=== PATIENT | female | born 1985 | race Caucasian/White ===

== ENCOUNTER 2024-03-22 08:28 | Inpatient (IN) | payer OTHER ==
[2024-03-22 08:37] LABS: Glucose,Whole Blood >600 mg/dL (70-110)
[2024-03-22] MEDS: SODIUM CHLORIDE 0.9% 2,000 ML IV STA (09:00)
[2024-03-22] MEDS: KETOROLAC 15 MG/ML 1 ML VIAL IVP STA (09:02)
[2024-03-22] MEDS: LORazepam 2 MG/ML INJ IV STA (09:03)
[2024-03-22] MEDS: methylPREDNISolone SOD SUCCI 125 MG/2 ML VIAL IV STA (09:03)
[2024-03-22] MEDS: FAMOTIDINE 20 MG/2 ML VIAL IV STA (09:04)
[2024-03-22] MEDS: ONDANSETRON 4 MG/2 ML VIAL IVP STA (09:05)
[2024-03-22] MEDS: diphenhydrAMINE 50 MG/ML 1 ML VIAL IVP STA (09:06)
--- NOTE | 2024-03-22 09:08 | ED ---
Abdominal Pain HPI - General Chief Complaint: Abdominal Pain Stated Complaint: Abd pain Time Seen by Provider: 03/22/24 08:40 Source: patient, EMS Mode of arrival: EMS Limitations: no limitations - History of Present Illness Initial Comments: 38-year-old female with past medical history of hypertension, diabetes on insulin who presents emergency department with nausea vomiting and abdominal pain. Patient states that for the past 12 hours she has had intense nausea, vomiting and diarrhea. Also reports to increased urination and thirst. She has not been on any of her diabetic medications except for metformin. States she recently moved here from [place] and all of her medication orders were confusing. States that she is taking lisinopril for her high blood pressure but has not taken it in the past 2 days because of vomiting. She has had positive sick contacts at home with same symptoms and so she thought it was just food poisoning. She denies hematemesis or dark stools. Patient has never been in DKA. She does have a history of alcohol abuse. Drinks 5th of vodka daily. States her last drink was 5 days ago but her mother does not believe this. - Related Data Home Medications Medication Instructions Recorded Confirmed lisinopriL [Zestril] 40 mg PO DAILY 03/22/24 03/23/24 metFORMIN HCL ER [Glucophage XR] 1,000 mg PO DAILY 03/22/24 03/23/24 Lansoprazole [Prevacid 24Hr] 15 mg PO DAILY 03/23/24 03/23/24 Sertraline [Zoloft] 100 mg PO DAILY 03/23/24 03/23/24 Vitamin B-100 Complex 1 tab PO DAILY 03/23/24 03/23/24 hydrOXYzine HCL [Atarax] 10 - 20 mg PO QID PRN 03/23/24 03/23/24 Previous Rx's Medication Instructions Recorded INSULIN ASPART (NovoLOG) [NovoLOG 10 unit SQ ACHS #1 each 03/25/24 (formulary)] Insulin Detemir (Levemir) [Levemir] 25 unit SQ DAILY@0700 #1 each 03/25/24 Insulin Detemir (Levemir) [Levemir] 25 unit SQ HS #1 each 03/25/24 Syringe and Needle,Insulin,1Ml 1 syr SQ DIRECTED #180 each 03/25/24 [Insulin Syringe 29G 1/2" 1ml] Allergies Allergy/AdvReac Type Severity Reaction Status Date / Time Iodinated Contrast Media Allergy Unknown Verified 03/22/24 08:43 Review of Systems ROS Statement: Those systems with pertinent positive or pertinent negative responses have been documented in the HPI. ROS Other: All systems not noted in ROS Statement are negative. Past Medical History Past Medical History: Diabetes Mellitus, Hypertension Additional Past Medical History / Comment(s): Lupus Past Surgical History: No Surgical Hx Reported Past Psychological History: Anxiety Smoking Status: Never smoker Past Alcohol Use History: Occasional Past Drug Use History: None Reported - Past Family History Mother Family Medical History: Diabetes Mellitus Father Family Medical History: Diabetes Mellitus General Exam Limitations: no limitations General appearance: alert, in no apparent distress Head exam: Present: atraumatic, normocephalic, normal inspection Eye exam: Present: normal appearance, PERRL, EOMI. Absent: scleral icterus, conjunctival injection, periorbital swelling ENT exam: Present: normal exam, mucous membranes dry Neck exam: Present: normal inspection. Absent: tenderness, meningismus, lymphadenopathy Respiratory exam: Present: normal lung sounds bilaterally, other (Tachypneic). Absent: respiratory distress, wheezes, rales, rhonchi, stridor Cardiovascular Exam: Present: normal rhythm, tachycardia, normal heart sounds. Absent: systolic murmur, diastolic murmur, rubs, gallop, clicks GI/Abdominal exam: Present: soft, normal bowel sounds. Absent: distended, tenderness, guarding, rebound, rigid Extremities exam: Present: normal inspection, full ROM, normal capillary refill. Absent: tenderness, pedal edema, joint swelling, calf tenderness Back exam: Present: normal inspection Neurological exam: Present: alert, oriented X3, CN II-XII intact Psychiatric exam: Present: normal affect, normal mood Skin exam: Present: warm, dry, intact, normal color. Absent: rash Course Vital Signs 03/22/24 03/22/24 03/22/24 08:33 09:08 09:27 Temperature 97.6 F Pulse Rate 140 H 140 H 141 H Respiratory 26 H 20 20 Rate Blood Pressure 187/148 178/121 133/105 O2 Sat by Pulse 97 99 96 Oximetry 03/22/24 03/22/24 03/22/24 09:59 10:05 10:35 Temperature 98.8 F Pulse Rate 140 H 140 H 141 H Respiratory 22 16 16 Rate Blood Pressure 157/106 154/100 170/115 O2 Sat by Pulse 99 100 97 Oximetry 03/22/24 03/22/24 03/22/24 11:12 11:34 12:05 Temperature 97.9 F Pulse Rate 142 H 141 H 140 H Respiratory 20 22 20 Rate Blood Pressure 163/106 142/99 129/99 O2 Sat by Pulse 98 96 96 Oximetry 03/22/24 03/22/24 03/22/24 13:03 14:00 15:04 Temperature 98.0 F 98.2 F Pulse Rate 147 H 142 H 146 H Respiratory 22 22 20 Rate Blood Pressure 149/111 126/85 147/98 O2 Sat by Pulse 93 L 95 95 Oximetry 03/22/24 03/22/24 03/22/24 16:15 17:05 18:13 Temperature 98.3 F 98.8 F Pulse Rate 141 H 138 H 140 H Respiratory 18 22 18 Rate Blood Pressure 148/101 145/94 145/86 O2 Sat by Pulse 93 L 92 L 93 L Oximetry 03/22/24 03/22/24 03/22/24 19:40 20:30 21:30 Temperature Pulse Rate 129 H 124 H 120 H Respiratory 18 17 15 Rate Blood Pressure 143/92 135/93 139/90 O2 Sat by Pulse 95 94 L 95 Oximetry 03/22/24 03/22/24 03/23/24 22:30 23:15 00:04 Temperature 98.7 F Pulse Rate 115 H 112 H 111 H Respiratory 16 16 19 Rate Blood Pressure 104/80 120/93 114/79 O2 Sat by Pulse 95 98 97 Oximetry 03/23/24 03/23/24 03/23/24 01:04 02:00 03:00 Temperature Pulse Rate 108 H 112 H 113 H Respiratory 18 16 16 Rate Blood Pressure 118/91 118/91 116/76 O2 Sat by Pulse 99 97 96 Oximetry 03/23/24 03/23/24 03/23/24 04:00 05:00 06:02 Temperature 98.2 F Pulse Rate 107 H 113 H 108 H Respiratory 16 16 18 Rate Blood Pressure 116/76 114/79 114/80 O2 Sat by Pulse 97 96 95 Oximetry 03/23/24 03/23/24 03/23/24 07:29 08:00 09:00 Temperature Pulse Rate 109 H 111 H 110 H Respiratory 14 18 18 Rate Blood Pressure 117/91 96/74 118/83 O2 Sat by Pulse 98 99 99 Oximetry 03/23/24 03/23/24 03/23/24 11:00 12:20 13:50 Temperature Pulse Rate 112 H 116 H 115 H Respiratory 18 18 18 Rate Blood Pressure 119/101 128/89 123/88 O2 Sat by Pulse 100 98 98 Oximetry 03/23/24 03/23/24 03/23/24 14:52 16:00 17:29 Temperature Pulse Rate 115 H 111 H 128 H Respiratory 18 16 18 Rate Blood Pressure 118/77 138/96 134/101 O2 Sat by Pulse 98 98 98 Oximetry 03/23/24 18:04 Temperature Pulse Rate 131 H Respiratory 20 Rate Blood Pressure 134/92 O2 Sat by Pulse 95 Oximetry - Reevaluation(s) Reevaluation #1: 03/22/24 12:42 Dr. Romano does text back accepting patient to the ICU Medical Decision Making - Medical Decision Making Was pt. sent in by a medical professional or institution (, PA, CIS COORDINATOR, urgent care, hospital, or retirement...) When possible be specific @ -No Did you speak to anyone other than the patient for history (EMS, parent, family, police, friend...)? What history was obtained from this source @ -Spoke with EMS and the patient's mother Did you review nursing and triage notes (agree or disagree)? Why? @ -I reviewed and agree with nursing and triage notes Were old charts reviewed (outside hosp., previous admission, EMS record, old EKG, old radiological studies, urgent care reports/EKG's, retirement records)? Report findings @ -No old charts were reviewed Differential Diagnosis (chest pain, altered mental status, abdominal pain women, abdominal pain men, vaginal bleeding, weakness, fever, dyspnea, syncope, headache, dizziness, GI bleed, back pain, seizure, CVA, palpatations, mental health, musculoskeletal)? @ -Differential Weakness: Hypoglycemia, shock, sepsis, hyponatremia, anemia, infection, DE, ETOH, adverse medicine reaction, overdose, stroke, this is not meant to be an all-inclusive list. EKG interpreted by me (3pts min.). @ -Yes and demonstrates sinus tachycardia with a rate of 148. LA interval 151. QRS 91. QTc of 353. Peaked T waves the 3V4. No ST segment elevation X-rays interpreted by me (1pt min.). @ -None done CT interpreted by me (1pt min.). @ -None done U/S interpreted by me (1pt. min.). @ -None done What testing was considered but not performed or refused? (CT, X-rays, U/S, labs)? Why? @ -None What meds were considered but not given or refused? Why? @ -None Did you discuss the management of the patient with other professionals (professionals i.e. DrTim, PA, CIS COORDINATOR, lab, RT, psych nurse, social services analyst, combat systems engineer, teacher, flight communications officer, pillowcase cutter)? Give summary @ -Yes, Dr. Torres and Dr. Velazquez Was smoking cessation discussed for >3mins.? @ -No Was critical care preformed (if so, how long)? @ -Yes, 35 minutes for management of DKA Were there social determinants of health that impacted care today? How? (Homelessness, low income, unemployed, alcoholism, drug addiction, transportation, low edu. Level, literacy, decrease access to med. care, [facility], rehab)? @ -No Was there de-escalation of care discussed even if they declined (Discuss DNR or withdrawal of care, Hospice)? DNR status @ -No What co-morbidities impacted this encounter? (DM, HTN, Smoking, COPD, CAD, Cancer, CVA, ARF, Chemo, Hep., AIDS, mental health diagnosis, sleep apnea, morbid obesity)? @ -Alcohol abuse, diabetes Was patient admitted / discharged? Hospital course, mention meds given and route, prescriptions, significant lab abnormalities, going to OR and other per tinent info. @ -Upon arrival patient seen and evaluated in room 2. Thorough history and physical exam was performed. IV access was established. Laboratory studies are conducted. Patient does meet criteria for DKA. She also appears to go into alcohol withdrawal. I felt that she would benefit from admission to the ICU. I spoke with Dr. Snowden and Dr. Velazquez. She is placed on insulin drip and admitted to the floor in stable condition Undiagnosed new problem with uncertain prognosis? @ -No Drug Therapy requiring intensive monitoring for toxicity (Heparin, Nitro, Insulin, Cardizem)? @ -Insulin Were any procedures done? @ -No Diagnosis/symptom? @ -acute DKA, acute alcohol withdrawal Acute, or Chronic, or Acute on Chronic? @ -Acute Uncomplicated (without systemic symptoms) or Complicated (systemic symptoms)? @ -Complicated Side effects of treatment? @ -No Exacerbation, Progression, or Severe Exacerbation? @ -No Poses a threat to life or bodily function? How? (Chest pain, [place], DE, pneumonia, PE, COPD, DKA, ARF, appy, cholecystitis, CVA, Diverticulitis, Homicidal, Suicidal, threat to staff... and all critical care pts) @ -Yes as patient is in DKA - Lab Data Result diagrams: 03/25/24 02:42 03/25/24 02:42 Lab Results 03/22/24 03/22/24 03/22/24 Range/Units 08:33 08:51 08:51 WBC 12.2 H (3.8-10.6) k/uL RBC 4.61 (3.80-5.40) m/uL Hgb 15.9 (11.4-16.0) gm/dL Hct 50.8 H (34.0-46.0) % MCV 110.3 H (80.0-100.0) fL MCH 34.6 (25.0-35.0) pg MCHC 31.4 (31.0-37.0) g/dL RDW 13.3 (11.5-15.5) % Plt Count 232 (150-450) k/uL MPV 9.9 Neutrophils % Not Reportable Lymphocytes % Not Reportable Monocytes % Not Reportable Eosinophils % Not Reportable Basophils % Not Reportable Neutrophils # Not Reportable Lymphocytes # Not Reportable Monocytes # Not Reportable Eosinophils # Not Reportable Basophils # Not Reportable Hypochromasia Marked Macrocytosis Marked A Sodium Potassium Chloride Carbon Dioxide Anion Gap BUN Creatinine Est GFR (CKD-EPI) Est GFR (CKD-EPI)AfAm Est GFR (CKD-EPI)NonAf Glucose POC Glucose (mg/dL) >600 H* (70-110) mg/dL POC Glu Mine Exploration Engineer ID Gilda Leyva Lactic Ac Sepsis Rflx Plasma Lactic Acid Faisal (0.7-2.0) mmol/L Calcium Phosphorus (2.5-4.5) mg/dL Total Bilirubin AST ALT Alkaline Phosphatase Troponin I (0.000-0.034) ng/mL Total Protein Albumin Lipase Urine Color Colorless Urine Appearance Clear (Clear) Urine pH 5.5 (5.0-8.0) Ur Specific [place] 1.029 (1.001-1.035) Urine Protein 1+ H (Negative) Urine Glucose (UA) 4+ H (Negative) Urine Ketones 4+ H (Negative) Urine Blood Small H (Negative) Urine Nitrite Negative (Negative) Urine Bilirubin Negative (Negative) Urine Urobilinogen <2.0 (<2.0) mg/dL Ur Leukocyte Esterase Negative (Negative) Urine WBC <1 (0-5) /hpf Ur Squamous Epith Cells 1 (0-4) /hpf Urine Mucus Rare H (None) /hpf Urine HCG, Qual (Not Detectd) Acetone, Qual (Negative) 03/22/24 03/22/24 03/22/24 Range/Units 08:51 09:20 09:20 WBC (3.8-10.6) k/uL RBC (3.80-5.40) m/uL Hgb (11.4-16.0) gm/dL Hct (34.0-46.0) % MCV (80.0-100.0) fL MCH (25.0-35.0) pg MCHC (31.0-37.0) g/dL RDW (11.5-15.5) % Plt Count (150-450) k/uL MPV Neutrophils % Lymphocytes % Monocytes % Eosinophils % Basophils % Neutrophils # Lymphocytes # Monocytes # Eosinophils # Basophils # Hypochromasia Macrocytosis Sodium Cancelled Potassium Cancelled Chloride Cancelled Carbon Dioxide Cancelled Anion Gap Cancelled BUN Cancelled Creatinine Cancelled Est GFR (CKD-EPI) Cancelled Est GFR (CKD-EPI)AfAm Cancelled Est GFR (CKD-EPI)NonAf Cancelled Glucose Cancelled POC Glucose (mg/dL) (70-110) mg/dL POC Glu Mine Exploration Engineer ID Lactic Ac Sepsis Rflx Plasma Lactic Acid Faisal (0.7-2.0) mmol/L Calcium Cancelled Phosphorus (2.5-4.5) mg/dL Total Bilirubin Cancelled AST Cancelled ALT Cancelled Alkaline Phosphatase Cancelled Troponin I <0.012 (0.000-0.034) ng/mL Total Protein Cancelled Albumin Cancelled Lipase Cancelled Urine Color Urine Appearance (Clear) Urine pH (5.0-8.0) Ur Specific [place] (1.001-1.035) Urine Protein (Negative) Urine Glucose (UA) (Negative) Urine Ketones (Negative) Urine Blood (Negative) Urine Nitrite (Negative) Urine Bilirubin (Negative) Urine Urobilinogen (<2.0) mg/dL Ur Leukocyte Esterase (Negative) Urine WBC (0-5) /hpf Ur Squamous Epith Cells (0-4) /hpf Urine Mucus (None) /hpf Urine HCG, Qual Not Detected (Not Detectd) Acetone, Qual Positive (Negative) 03/22/24 03/22/24 03/22/24 Range/Units 09:20 10:00 10:33 WBC (3.8-10.6) k/uL RBC (3.80-5.40) m/uL Hgb (11.4-16.0) gm/dL Hct (34.0-46.0) % MCV (80.0-100.0) fL MCH (25.0-35.0) pg MCHC (31.0-37.0) g/dL RDW (11.5-15.5) % Plt Count (150-450) k/uL MPV Neutrophils % Lymphocytes % Monocytes % Eosinophils % Basophils % Neutrophils # Lymphocytes # Monocytes # Eosinophils # Basophils # Hypochromasia Macrocytosis Sodium Potassium Chloride Carbon Dioxide Anion Gap BUN Creatinine Est GFR (CKD-EPI) Est GFR (CKD-EPI)AfAm Est GFR (CKD-EPI)NonAf Glucose POC Glucose (mg/dL) 582 H* (70-110) mg/dL POC Glu Mine Exploration Engineer ID Gilda Leyva Lactic Ac Sepsis Rflx Y Plasma Lactic Acid Faisal 3.2 H* (0.7-2.0) mmol/L Calcium Phosphorus (2.5-4.5) mg/dL Total Bilirubin AST ALT Alkaline Phosphatase Troponin I (0.000-0.034) ng/mL Total Protein Albumin Lipase Urine Color Urine Appearance (Clear) Urine pH (5.0-8.0) Ur Specific [place] (1.001-1.035) Urine Protein (Negative) Urine Glucose (UA) (Negative) Urine Ketones (Negative) Urine Blood (Negative) Urine Nitrite (Negative) Urine Bilirubin (Negative) Urine Urobilinogen (<2.0) mg/dL Ur Leukocyte Esterase (Negative) Urine WBC (0-5) /hpf Ur Squamous Epith Cells (0-4) /hpf Urine Mucus (None) /hpf Urine HCG, Qual (Not Detectd) Acetone, Qual (Negative) 03/22/24 03/22/24 03/22/24 Range/Units 10:34 11:54 12:00 WBC (3.8-10.6) k/uL RBC (3.80-5.40) m/uL Hgb (11.4-16.0) gm/dL Hct (34.0-46.0) % MCV (80.0-100.0) fL MCH (25.0-35.0) pg MCHC (31.0-37.0) g/dL RDW (11.5-15.5) % Plt Count (150-450) k/uL MPV Neutrophils % Lymphocytes % Monocytes % Eosinophils % Basophils % Neutrophils # Lymphocytes # Monocytes # Eosinophils # Basophils # Hypochromasia Macrocytosis Sodium 136 L Potassium 6.2 H* Chloride 105 Carbon Dioxide <5 L* Anion Gap BUN 10 Creatinine 0.74 Est GFR (CKD-EPI) Est GFR (CKD-EPI)AfAm >90 Est GFR (CKD-EPI)NonAf >90 Glucose 616 H* POC Glucose (mg/dL) 533 H* (70-110) mg/dL POC Glu Mine Exploration Engineer ID Gilda Leyva Lactic Ac Sepsis Rflx Plasma Lactic Acid Faisal 1.6 (0.7-2.0) mmol/L Calcium 8.0 L Phosphorus 6.3 H (2.5-4.5) mg/dL Total Bilirubin 0.8 AST 187 H ALT 105 H Alkaline Phosphatase 151 H Troponin I (0.000-0.034) ng/mL Total Protein 7.1 Albumin 4.3 Lipase 245 Urine Color Urine Appearance (Clear) Urine pH (5.0-8.0) Ur Specific [place] (1.001-1.035) Urine Protein (Negative) Urine Glucose (UA) (Negative) Urine Ketones (Negative) Urine Blood (Negative) Urine Nitrite (Negative) Urine Bilirubin (Negative) Urine Urobilinogen (<2.0) mg/dL Ur Leukocyte Esterase (Negative) Urine WBC (0-5) /hpf Ur Squamous Epith Cells (0-4) /hpf Urine Mucus (None) /hpf Urine HCG, Qual (Not Detectd) Acetone, Qual (Negative) 03/22/24 Range/Units 12:02 WBC (3.8-10.6) k/uL RBC (3.80-5.40) m/uL Hgb (11.4-16.0) gm/dL Hct (34.0-46.0) % MCV (80.0-100.0) fL MCH (25.0-35.0) pg MCHC (31.0-37.0) g/dL RDW (11.5-15.5) % Plt Count (150-450) k/uL MPV Neutrophils % Lymphocytes % Monocytes % Eosinophils % Basophils % Neutrophils # Lymphocytes # Monocytes # Eosinophils # Basophils # Hypochromasia Macrocytosis Sodium 136 L Potassium 6.5 H* Chloride 107 Carbon Dioxide <5 L* Anion Gap BUN 9 Creatinine 0.66 Est GFR (CKD-EPI) Est GFR (CKD-EPI)AfAm >90 Est GFR (CKD-EPI)NonAf >90 Glucose 554 H* POC Glucose (mg/dL) (70-110) mg/dL POC Glu Mine Exploration Engineer ID Lactic Ac Sepsis Rflx Plasma Lactic Acid Faisal (0.7-2.0) mmol/L Calcium Phosphorus 5.4 H (2.5-4.5) mg/dL Total Bilirubin AST ALT Alkaline Phosphatase Troponin I (0.000-0.034) ng/mL Total Protein Albumin Lipase Urine Color Urine Appearance (Clear) Urine pH (5.0-8.0) Ur Specific [place] (1.001-1.035) Urine Protein (Negative) Urine Glucose (UA) (Negative) Urine Ketones (Negative) Urine Blood (Negative) Urine Nitrite (Negative) Urine Bilirubin (Negative) Urine Urobilinogen (<2.0) mg/dL Ur Leukocyte Esterase (Negative) Urine WBC (0-5) /hpf Ur Squamous Epith Cells (0-4) /hpf Urine Mucus (None) /hpf Urine HCG, Qual (Not Detectd) Acetone, Qual (Negative) Disposition Clinical Impression: Alcohol withdrawal delirium, DKA (diabetic ketoacidosis), Hyperkalemia Disposition: ADMITTED IP TO THIS [facility] Condition: Stable Is patient prescribed a controlled substance at d/c from ED?: No Time of Disposition: 12:29 Decision to Admit Reason: Admit from EC Decision Date: 03/22/24 Decision Time: 12:29
[2024-03-22 09:14] LABS: Appearance,Urine Clear (Clear); Bilirubin,Urine Negative (Negative); Blood,Urine Small (Negative); Color,Urine Colorless; Glucose,Urine (UA) 4+ (Negative); Leukocyte Esterase,Urine Negative (Negative); Mucus,Urine Rare /hpf; Nitrite,Urine Negative (Negative); PH, Urine 5.5 (5.0-8.0); Protein,Urine 1+ (Negative); Specific Gravity,Urine 1.029 (1.001-1.035); Squamous Epithelial Cell,Urine 1 /hpf (0-4); Urobilinogen,Urine <2.0 mg/dL (<2.0); WBC,Urine <1 /hpf (0-5)
[2024-03-22 09:20] LABS: HCT 50.8 % (34.0-46.0); HGB 15.9 gm/dL (11.4-16.0); Hypochromasia Marked; MCH 34.6 pg (25.0-35.0); MCHC 31.4 g/dL (31.0-37.0); MCV 110.3 fL (80.0-100.0); Macrocytosis Marked; Mean Platelet Volume 9.9; Platelet Count 232 k/uL (150-450); RBC 4.61 m/uL (3.80-5.40); RDW 13.3 % (11.5-15.5); WBC 12.2 k/uL (3.8-10.6)
[2024-03-22 09:52] LABS: Ketones,Urine 4+ (Negative)
[2024-03-22] MEDS ORDERED: Magnesium Replacement Protocol 1 EACH MISC MISCELLANE PRN (10:31)
[2024-03-22] MEDS ORDERED: Potassium Replacement Protocol 1 EACH MISC MISCELLANE PRN (10:31)
[2024-03-22] MEDS ORDERED: DEXTROSE 50% SYRINGE 50 ML IVP PRN ×2 (10:31)
[2024-03-22 10:35] LABS: Glucose,Whole Blood 582 mg/dL (70-110)
[2024-03-22] MEDS ORDERED: LORazepam 2 MG/ML INJ IV PRN ×2 (10:35)
[2024-03-22] MEDS: SODIUM CHLORIDE 0.9% 1,000 ML IV ONE (10:36)
[2024-03-22 11:03] LABS: ALT 105 U/L (4-34); AST 187 U/L (14-36); African American GFR (CKD) >90 (>60 ml/min/1.73 sqM); Albumin 4.3 g/dL (3.5-5.0); Alkaline Phosphatase 151 U/L (38-126); Blood Urea Nitrogen 10 mg/dL (7-17); Chloride 105 mmol/L (98-107); Lipase 245 U/L (23-300); Non-African American GFR(CKD) >90 (>60 ml/min/1.73 sqM); Phosphorus 6.3 mg/dL (2.5-4.5); Sodium 136 mmol/L (137-145); Total Bilirubin 0.8 mg/dL (0.2-1.3); Total Protein 7.1 g/dL (6.3-8.2)
[2024-03-22 11:04] LABS: Carbon Dioxide <5 mmol/L (22-30)
[2024-03-22 11:06] LABS: Glucose 616 mg/dL (74-99); Potassium 6.2 mmol/L (3.5-5.1)
[2024-03-22] MEDS: INSULIN REGULAR 100 UNIT in SODIUM CHLORIDE 0.9% 100 ML IV SCH (11:11)
[2024-03-22] MEDS: SODIUM CHLORIDE 0.9% 1,000 ML IV SCH (11:33)
[2024-03-22] MEDS: LORazepam 2 MG/ML INJ IV PRN (11:38)
--- NOTE | 2024-03-22 11:47 | CT ---
EXAMINATION TYPE: CT abdomen pelvis w con CT DLP: 1104.7 mGycm, Automated exposure control for dose reduction was used. DATE OF EXAM: 03/22/2024 11:41 AM COMPARISON: None. CLINICAL INDICATION: Female, 38 years old with history of abdominal pain; high glucose, diabetic not taking meds TECHNIQUE: Axial CT abdomen pelvis w con;Sagittal and coronal reformats were created on a separate w orkstation. Contrast used:100 ml mL of Isovue 300 with IV Contrast, (none if empty) Oral contrast used: without Oral Contrast (none if empty) FINDINGS: LOWER CHEST: Unremarkable ABDOMEN LIVER: Diffusely hypoattenuating parenchyma. GALLBLADDER AND BILE DUCTS: Unremarkable. PANCREAS: Unremarkable. SPLEEN: Unremarkable. ADRENAL GLANDS: Unremarkable. KIDNEYS AND URETERS: No evidence of hydronephrosis or renal calculus. The ureters are unremarkable. PELVIS BLADDER: Unremarkable REPRODUCTIVE: Intrauterine device seen within the endometrium. ABDOMEN & PELVIS STOMACH AND BOWEL: No evidence of bowel obstruction. Circumferential wall thickening of the cecum, as cending colon and transverse colon. There is submucosal fat deposition most proximal right colon. PERITONEUM/RETROPERITONEUM: No evidence of pneumoperitoneum or free fluid. Nonspecific Rose Marie mesenter y. VASCULATURE: No evidence of aortic aneurysm. MUSCULOSKELETAL: No acute osseous abnormalities LYMPH NODES: No gross evidence for lymphadenopathy. SOFT TISSUE/ABDOMINAL WALL: Unremarkable IMPRESSION: 1. Mild circumferential wall thickening of the right colon with submucosal fat deposition correlate for acute or chronic colitis. 2. Nonspecific Rose Marie mesentery which could represent stenosing peritonitis. 3. Hepatic steatosis. 4. IUD in appropriate position.
[2024-03-22 11:55] LABS: Glucose,Whole Blood 533 mg/dL (70-110)
[2024-03-22] MEDS ORDERED: NALOXONE 0.4 MG/ML 1 ML VIAL IV PRN (12:30)
[2024-03-22 13:03] LABS: Glucose,Whole Blood 451 mg/dL (70-110)
--- NOTE | 2024-03-22 13:42 | P.HPIM ---
History of Present Illness H&P Date: 03/22/24 Patient is a 38-year-old female with history significant for insulin-dependent diabetes presenting to the emergency department with nausea/vomiting and abdominal pain. Unable to obtain history from patient due to altered mental status. According to the limited history provided to the emergency department she has had had 12 hours of intense nausea, vomiting, diarrhea as well as increased urination and thirst. She has not been on any of her diabetic medications except for metformin. She recently moved from [place] and all of her medications are confusing to her. She is prescribed lisinopril for her hypertension but has not been taking it over the last 2 days due to vomiting. She has a history of alcohol abuse - drinks 1/5 of vodka daily. Patient self reports that her last drink was 5 days ago per mother disagrees. She is noncompliant with her medications. EKG shows sinus tachycardia with ventricular rate of [address] abdomen pelvis: Mild circumferential wall thickening of the rectal wall with submucosal fat deposition, nonspecific genevieve mesentery which could represent stenosing peritonitis, hepatic steatosis. WBCs 12.2, hemoglobin 15.9, hematocrit 50, MCV 110.3 with macrocytosis, sodium 136, potassium 6.2, carbon dioxide <5, anion gap unable to be calculated, glucose 616. Afebrile, hypertensive 187/148 on admission, tachycardic 140s. Urinalysis positive for ketones. ED documentation reviewed. Review of systems: Unable to obtain ROS due to altered mental status. Social history: Tobacco: Never smoker Alcohol: Daily use Recreational drugs: None reported Physical examination: Vital signs reviewed, limited exam General: Acute distress, responsive but unintelligible Head: Pablo/red discoloration of the face; atraumatic Cardiovascular: S1S2 present, regular rate and rhythm, no murmurs/rubs/gallops Lungs: CTA bilateral, no rhonchi, no rales, no accessory muscle use Abdominal: Soft, nontender to palpation Ext: Dorsalis pedis pulses palpable bilaterally, no edema present Assessment/Plan: #. Diabetic ketoacidosis IV insulin 0.1 units/kg/hr D5-0.45% 150 mls/hr DKA protocol in place #. Alcohol withdrawal CIWA protocol Thiamine 100 mg daily #. Hyperkalemia, likely secondary to DKA #. Lactic acidosis, likely secondary to DKA #. Sepsis, likely secondary to DKA DKA protocol Dr. Bennett MD I have performed a history and physical examination and medical decision making of this patient, discussed the same with the the resident, and agree with the assessment and plan as written. I performed brief physical exam. Past Medical History Past Medical History: Diabetes Mellitus, Hypertension Additional Past Medical History / Comment(s): Lupus Past Surgical History: No Surgical Hx Reported Past Psychological History: Anxiety Smoking Status: Never smoker Past Alcohol Use History: Occasional Past Drug Use History: None Reported Medications and Allergies Home Medications Medication Instructions Recorded Confirmed Type lisinopriL [Zestril] 40 mg PO DAILY 03/22/24 03/22/24 History metFORMIN HCL ER [Glucophage XR] 1,000 mg PO BID 03/22/24 03/22/24 History Allergies Allergy/AdvReac Type Severity Reaction Status Date / Time Iodinated Contrast Media Allergy Unknown Verified 03/22/24 08:43 Physical Exam Vitals: Vital Signs Temp Pulse Resp BP Pulse Ox 03/22/24 11:12 142 H 20 163/106 98 03/22/24 10:35 98.8 F 141 H 16 170/115 97 03/22/24 10:05 140 H 16 154/100 100 03/22/24 09:59 140 H 22 157/106 99 03/22/24 09:27 141 H 20 133/105 96 03/22/24 09:08 140 H 20 178/121 99 03/22/24 08:33 97.6 F 140 H 26 H 187/148 97 Intake and Output 03/21/24 03/22/24 03/22/24 22:59 06:59 14:59 Other: Weight 81.647 kg Results CBC & Chem 7: 03/23/24 04:42 03/23/24 04:42 Labs: Abnormal Lab Results - Last 24 Hours (Table) 03/22/24 03/22/24 03/22/24 Range/Units 08:33 08:51 08:51 WBC 12.2 H (3.8-10.6) k/uL Hct 50.8 H (34.0-46.0) % MCV 110.3 H (80.0-100.0) fL Macrocytosis Marked A Sodium (137-145) mmol/L Potassium (3.5-5.1) mmol/L Carbon Dioxide (22-30) mmol/L Glucose (74-99) mg/dL POC Glucose (mg/dL) >600 H* (70-110) mg/dL Plasma Lactic Acid Faisal (0.7-2.0) mmol/L Calcium (8.4-10.2) mg/dL Phosphorus (2.5-4.5) mg/dL AST (14-36) U/L ALT (4-34) U/L Alkaline Phosphatase (38-126) U/L Urine Protein 1+ H (Negative) Urine Glucose (UA) 4+ H (Negative) Urine Ketones 4+ H (Negative) Urine Blood Small H (Negative) Urine Mucus Rare H (None) /hpf 03/22/24 03/22/24 03/22/24 Range/Units 09:20 10:33 10:34 WBC (3.8-10.6) k/uL Hct (34.0-46.0) % MCV (80.0-100.0) fL Macrocytosis Sodium 136 L (137-145) mmol/L Potassium 6.2 H* (3.5-5.1) mmol/L Carbon Dioxide <5 L* (22-30) mmol/L Glucose 616 H* (74-99) mg/dL POC Glucose (mg/dL) 582 H* (70-110) mg/dL Plasma Lactic Acid Faisal 3.2 H* (0.7-2.0) mmol/L Calcium 8.0 L (8.4-10.2) mg/dL Phosphorus 6.3 H (2.5-4.5) mg/dL AST 187 H (14-36) U/L ALT 105 H (4-34) U/L Alkaline Phosphatase 151 H (38-126) U/L Urine Protein (Negative) Urine Glucose (UA) (Negative) Urine Ketones (Negative) Urine Blood (Negative) Urine Mucus (None) /hpf
[2024-03-22 13:44] LABS: African American GFR (CKD) >90 (>60 ml/min/1.73 sqM); Blood Urea Nitrogen 9 mg/dL (7-17); Chloride 107 mmol/L (98-107); Non-African American GFR(CKD) >90 (>60 ml/min/1.73 sqM); Phosphorus 5.4 mg/dL (2.5-4.5); Sodium 136 mmol/L (137-145)
[2024-03-22 13:52] LABS: Carbon Dioxide <5 mmol/L (22-30); Glucose 554 mg/dL (74-99); Potassium 6.5 mmol/L (3.5-5.1)
[2024-03-22 14:05] LABS: Glucose,Whole Blood 340 mg/dL (70-110)
[2024-03-22 14:57] LABS: Glucose,Whole Blood 320 mg/dL (70-110)
[2024-03-22 16:13] LABS: Glucose,Whole Blood 267 mg/dL (70-110)
[2024-03-22] MEDS: D5-0.45% NACL WITH KCL 20MEQ/L 1,000 ML IV SCH (16:16)
[2024-03-22 16:53] LABS: African American GFR (CKD) >90 (>60 ml/min/1.73 sqM); Blood Urea Nitrogen 8 mg/dL (7-17); Chloride 114 mmol/L (98-107); Glucose 269 mg/dL (74-99); Non-African American GFR(CKD) >90 (>60 ml/min/1.73 sqM); Phosphorus 2.8 mg/dL (2.5-4.5); Potassium 5.1 mmol/L (3.5-5.1); Sodium 140 mmol/L (137-145)
[2024-03-22 17:02] LABS: Carbon Dioxide <5 mmol/L (22-30)
[2024-03-22 17:04] LABS: Glucose,Whole Blood 240 mg/dL (70-110)
--- NOTE | 2024-03-22 17:09 | P.CNPUL ---
History of Present Illness Consult date: 03/22/24 Requesting physician: Leslie Eduardo Reason for consult: other (dka) Chief complaint: Nausea vomiting and diarrhea History of present illness: This is a 38-year-old female with history of type 1 diabetes, patient is not compliant with her medications, presented to the ER with 1 day history of nausea vomiting diarrhea, increased urination, and excessive thirst. Patient is also known to have history of alcohol abuse, she drinks 1/5 of vodka daily. Last drink was supposedly 5 days ago, patient is not a great historian and I was asked to see her while in the ER for ICU admission as workup in the ER revealed that the patient has acute diabetic ketoacidosis. Patient has a significant ani on gap metabolic acidosis, bicarb is less than 5, blood sugar is over 600. And she had positive ketones in the urine. I saw the patient in the ER, and recommended ICU admission. While in the ER the patient was receiving fluid at 150 cc/h she was on insulin drip at 9 units/h and she is not a great historian. Anion gap was over 23. Renal profile is normal.WBC count is 12.2 hemoglobin 15.9, Review of Systems Unable to obtain due to mental status ROS unobtainable: due to mental status Past Medical History Past Medical History: Diabetes Mellitus, Hypertension Additional Past Medical History / Comment(s): Lupus Past Surgical History: No Surgical Hx Reported Past Psychological History: Anxiety Smoking Status: Never smoker Past Alcohol Use History: Occasional Past Drug Use History: None Reported Medications and Allergies Home Medications Medication Instructions Recorded Confirmed Type lisinopriL [Zestril] 40 mg PO DAILY 03/22/24 03/22/24 History metFORMIN HCL ER [Glucophage XR] 1,000 mg PO BID 03/22/24 03/22/24 History Allergies Allergy/AdvReac Type Severity Reaction Status Date / Time Iodinated Contrast Media Allergy Unknown Verified 03/22/24 08:43 Physical Exam Vitals: Vital Signs Temp Pulse Resp BP Pulse Ox 03/22/24 16:15 141 H 18 148/101 93 L 03/22/24 15:04 98.2 F 146 H 20 147/98 95 03/22/24 14:00 98.0 F 142 H 22 126/85 95 03/22/24 13:03 147 H 22 149/111 93 L 03/22/24 12:05 97.9 F 140 H 20 129/99 96 03/22/24 11:34 141 H 22 142/99 96 03/22/24 11:12 142 H 20 163/106 98 03/22/24 10:35 98.8 F 141 H 16 170/115 97 03/22/24 10:05 140 H 16 154/100 100 03/22/24 09:59 140 H 22 157/106 99 03/22/24 09:27 141 H 20 133/105 96 03/22/24 09:08 140 H 20 178/121 99 03/22/24 08:33 97.6 F 140 H 26 H 187/148 97 Intake and Output 03/22/24 03/22/24 03/22/24 06:59 14:59 22:59 Intake Total 41.78 Output Total 1200 Balance -1158.22 Intake: Intake, IV Titration 41.78 Amount Insulin Regular 100 unit 41.78 In Sodium Chloride 0.9% 100 ml @ 0.1 UNITS/KG/HR 8.246 mls/hr IV .[id number] [facility] Rx#:[id number] Output: Urine 1200 Other: Weight 81.647 kg Physical exam revealed a 58-year-old female in no distress but noted to be hyperventilating. Patient does not respond to any questions Head: Atraumatic, normocephalic, face seems to be flushed. HEENT: PERRLA, EOMI, nonicteric, no neck masses, no JVD. Pulmonary: Clear throughout no crackles rhonchi or wheezes Cardiac: Tachycardic no S3 gallop, no murmur Abdomen: Obese soft nontender no megaly no rebound no guarding Extremities no clubbing edema or cyanosis. Neurologic: Patient is awake, but does not respond to any questions Psychiatric: Could not fully assess as the patient seems to be very uncooperative. Skin: Patient has no rashes. Except for flushed face Results - Laboratory Findings CBC and BMP: 03/22/24 08:51 03/22/24 12:02 Abnormal lab findings: Abnormal Labs 03/22/24 03/22/24 03/22/24 08:33 08:51 08:51 WBC 12.2 H Hct 50.8 H MCV 110.3 H Macrocytosis Marked A Sodium Potassium Carbon Dioxide Glucose POC Glucose (mg/dL) >600 H* Plasma Lactic Acid Faisal Calcium Phosphorus AST ALT Alkaline Phosphatase Urine Protein 1+ H Urine Glucose (UA) 4+ H Urine Ketones 4+ H Urine Blood Small H Urine Mucus Rare H 03/22/24 03/22/24 03/22/24 09:20 10:33 10:34 WBC Hct MCV Macrocytosis Sodium 136 L Potassium 6.2 H* Carbon Dioxide <5 L* Glucose 616 H* POC Glucose (mg/dL) 582 H* Plasma Lactic Acid Faisal 3.2 H* Calcium 8.0 L Phosphorus 6.3 H AST 187 H ALT 105 H Alkaline Phosphatase 151 H Urine Protein Urine Glucose (UA) Urine Ketones Urine Blood Urine Mucus 03/22/24 03/22/24 03/22/24 11:54 12:02 13:01 WBC Hct MCV Macrocytosis Sodium 136 L Potassium 6.5 H* Carbon Dioxide <5 L* Glucose 554 H* POC Glucose (mg/dL) 533 H* 451 H Plasma Lactic Acid Faisal Calcium Phosphorus 5.4 H AST ALT Alkaline Phosphatase Urine Protein Urine Glucose (UA) Urine Ketones Urine Blood Urine Mucus 03/22/24 03/22/24 03/22/24 14:02 14:55 16:11 WBC Hct MCV Macrocytosis Sodium Potassium Carbon Dioxide Glucose POC Glucose (mg/dL) 340 H 320 H 267 H Plasma Lactic Acid Faisal Calcium Phosphorus AST ALT Alkaline Phosphatase Urine Protein Urine Glucose (UA) Urine Ketones Urine Blood Urine Mucus - Diagnostic Findings Additional studies: CT abdomen and pelvis is basically unremarkable Assessment and Plan Assessment: Impression: Acute diabetic ketoacidosis, secondary to noncompliance History of alcohol abuse History of type 1 diabetes Recommendation: Admit patient to ICU Continue DKA protocol Continue CIWA protocol Address abnormal electrolytes accordingly including sodium and potassium Monitor renal status and urine output closely Will continue to follow Time with Patient: Greater than 30
[2024-03-22 18:10] LABS: Glucose,Whole Blood 236 mg/dL (70-110)
[2024-03-22 19:04] LABS: Glucose,Whole Blood 232 mg/dL (70-110)
[2024-03-22 20:05] LABS: Glucose,Whole Blood 260 mg/dL (70-110)
[2024-03-22 20:45] LABS: Glucose,Whole Blood 240 mg/dL (70-110)
[2024-03-22 21:54] LABS: Glucose,Whole Blood 261 mg/dL (70-110)
[2024-03-22 23:05] LABS: Glucose,Whole Blood 277 mg/dL (70-110)
[2024-03-22 23:58] LABS: Glucose,Whole Blood 296 mg/dL (70-110)
[2024-03-23 01:01] LABS: Glucose,Whole Blood 235 mg/dL (70-110)
[2024-03-23 01:56] LABS: Glucose,Whole Blood 205 mg/dL (70-110)
[2024-03-23 02:08] LABS: African American GFR (CKD) >90 (>60 ml/min/1.73 sqM); Blood Urea Nitrogen 7 mg/dL (7-17); Calcium 8.8 mg/dL (8.4-10.2); Carbon Dioxide 10 mmol/L (22-30); Chloride 106 mmol/L (98-107); Glucose 204 mg/dL (74-99); Non-African American GFR(CKD) >90 (>60 ml/min/1.73 sqM); Potassium 3.7 mmol/L (3.5-5.1)
[2024-03-23 02:36] LABS: Anion Gap 21 mmol/L; Sodium 137 mmol/L (137-145)
[2024-03-23 02:58] LABS: Glucose,Whole Blood 192 mg/dL (70-110)
[2024-03-23 03:58] LABS: Glucose,Whole Blood 129 mg/dL (70-110)
[2024-03-23 04:58] LABS: Glucose,Whole Blood 142 mg/dL (70-110)
[2024-03-23 05:46] LABS: African American GFR (CKD) >90 (>60 ml/min/1.73 sqM); Anion Gap 11 mmol/L; Blood Urea Nitrogen 7 mg/dL (7-17); Calcium 8.9 mg/dL (8.4-10.2); Carbon Dioxide 16 mmol/L (22-30); Chloride 113 mmol/L (98-107); Glucose 112 mg/dL (74-99); Non-African American GFR(CKD) >90 (>60 ml/min/1.73 sqM); Potassium 3.6 mmol/L (3.5-5.1); Sodium 140 mmol/L (137-145)
[2024-03-23 05:58] LABS: Glucose,Whole Blood 158 mg/dL (70-110)
[2024-03-23 06:19] LABS: Basophils % (A) 0 %; Eosinophils % (A) 0 %; HCT 40.4 % (34.0-46.0); HGB 13.3 gm/dL (11.4-16.0); Lymphocytes # (A) 0.7 k/uL (1.0-4.8); Lymphocytes % (A) 12 %; MCH 33.5 pg (25.0-35.0); Macrocytosis Slight; Mean Platelet Volume 8.6; Monocytes # (A) 0.4 k/uL (0-1.0); Monocytes % (A) 6 %; Neutrophils # (A) 4.9 k/uL (1.3-7.7); Neutrophils % (A) 81 %; Platelet Count 133 k/uL (150-450); RBC 3.99 m/uL (3.80-5.40); RDW 13.8 % (11.5-15.5); WBC 6.1 k/uL (3.8-10.6)
[2024-03-23 06:24] LABS: MCV 101.4 fL (80.0-100.0)
[2024-03-23 06:53] LABS: Glucose,Whole Blood 192 mg/dL (70-110)
[2024-03-23 08:06] LABS: Glucose,Whole Blood 245 mg/dL (70-110)
[2024-03-23] MEDS: THIAMINE 100 MG TAB PO SCH (08:37)
[2024-03-23 09:11] LABS: Glucose,Whole Blood 246 mg/dL (70-110)
[2024-03-23 09:24] LABS: African American GFR (CKD) >90 (>60 ml/min/1.73 sqM); Anion Gap 11 mmol/L; Blood Urea Nitrogen 9 mg/dL (7-17); Carbon Dioxide 16 mmol/L (22-30); Chloride 110 mmol/L (98-107); Glucose 239 mg/dL (74-99); Non-African American GFR(CKD) >90 (>60 ml/min/1.73 sqM); Potassium 3.6 mmol/L (3.5-5.1); Sodium 137 mmol/L (137-145)
[2024-03-23 10:06] LABS: Glucose,Whole Blood 304 mg/dL (70-110)
[2024-03-23 11:15] LABS: Glucose,Whole Blood 290 mg/dL (70-110)
[2024-03-23] MEDS: INSULIN DETEMIR (LEVEMIR) 100 UNIT/ML SYR SQ STA (11:44)
[2024-03-23 12:15] LABS: Glucose,Whole Blood 263 mg/dL (70-110)
[2024-03-23 12:32] LABS: African American GFR (CKD) >90 (>60 ml/min/1.73 sqM); Anion Gap 14 mmol/L; Blood Urea Nitrogen 8 mg/dL (7-17); Carbon Dioxide 14 mmol/L (22-30); Chloride 109 mmol/L (98-107); Glucose 269 mg/dL (74-99); Non-African American GFR(CKD) >90 (>60 ml/min/1.73 sqM); Potassium 3.6 mmol/L (3.5-5.1); Sodium 137 mmol/L (137-145)
[2024-03-23 13:28] LABS: Glucose,Whole Blood 335 mg/dL (70-110)
[2024-03-23] MEDS ORDERED: DEXTROSE 50% SYRINGE 50 ML IVP PRN ×2 (13:44)
[2024-03-23] MEDS: SODIUM CHLORIDE 0.45% 1,000 ML IV SCH (14:03)
--- NOTE | 2024-03-23 14:10 | P.PN ---
Subjective Progress Note Date: 03/23/24 This is a 38-year-old female with history of type 1 diabetes, patient is not compliant with her medications, presented to the ER with 1 day history of nausea vomiting diarrhea, increased urination, and excessive thirst. Patient is also known to have history of alcohol abuse, she drinks 1/5 of vodka daily. Last drink was supposedly 5 days ago, patient is not a great historian and I was asked to see her while in the ER for ICU admission as workup in the ER revealed that the patient has acute diabetic ketoacidosis. Patient has a significant anion gap metabolic acidosis, bicarb is less than 5, blood sugar is over 600. And she had positive ketones in the urine. I saw the patient in the ER, and rec ommended ICU admission. While in the ER the patient was receiving fluid at 150 cc/h she was on insulin drip at 9 units/h and she is not a great historian. Anion gap was over 23. Renal profile is normal.WBC count is 12.2 hemoglobin 15.9, The patient is seen today March 23, 2024 in follow-up in the emergency department. She is currently sitting up on the stretcher. Awake and alert in no acute distress. She is currently on D5 and half-normal saline with 20 of KCl at 150 mL/h. Continued on insulin drip at 4.31 units/kg/h.. She is admitting to drinking at least 1 pint of liquor a day. She remains on the CIWA protocol. She has been maintaining good O2 saturations in the high 90s. She has been afebrile. Hemodynamically stable. Sodium 137. Potassium 3.6. Bicarb 14. Anion gap 14. BUN 8. Creatinine 0.56. Glucose 269. Objective - Vital Signs Vital signs: Vital Signs Temp 98.2 F 03/23/24 05:00 Pulse 115 H 03/23/24 13:50 Resp 18 03/23/24 13:50 BP 123/88 03/23/24 13:50 Pulse Ox 98 03/23/24 13:50 FiO2 Intake & Output 03/22/24 03/23/24 03/23/24 18:59 06:59 18:59 Intake Total 59.182 126.553 15.171 Output Total 1900 950 Balance -1840.818 -823.447 15.171 Weight 81.647 kg Intake: Intake, IV Titration 59.182 126.553 15.171 Amount Insulin Regular 100 unit 59.182 126.553 15.171 In Sodium Chloride 0.9% 100 ml @ 0.1 UNITS/KG/HR 8.246 mls/hr IV .[id number] [facility] Rx#:[id number] Output: Urine 1900 950 - Exam GENERAL EXAM: Alert, pleasant 38-year-old female, on room air, comfortable in no apparent distress. HEAD: Normocephalic. EYES: Normal reaction of pupils, equal size. NOSE: Clear with pink turbinates. THROAT: No erythema or exudates. NECK: No masses, no JVD. CHEST: No chest wall deformity. LUNGS: Equal air entry with no crackles, wheeze, rhonchi or dullness. CVS: S1 and S2 normal with no audible murmur, regular rhythm. ABDOMEN: No hepatosplenomegaly, normal bowel sounds, no guarding or rigidity. SPINE: No scoliosis or deformity SKIN: No rashes CENTRAL NERVOUS SYSTEM: No focal deficits, tone is normal in all 4 extremities. EXTREMITIES: There is no peripheral edema. No clubbing, no cyanosis. Peripheral pulses are intact. - Labs CBC & Chem 7: 03/23/24 04:42 03/23/24 11:51 Labs: Abnormal Lab Results - Last 24 Hours (Table) 03/22/24 03/22/24 03/22/24 Range/Units 14:02 14:55 15:56 MCV (80.0-100.0) fL Plt Count (150-450) k/uL Lymphocytes # (1.0-4.8) k/uL Chloride 114 H (98-107) mmol/L Carbon Dioxide <5 L* (22-30) mmol/L Creatinine (0.52-1.04) mg/dL Glucose 269 H (74-99) mg/dL POC Glucose (mg/dL) 340 H 320 H (70-110) mg/dL Phosphorus (2.5-4.5) mg/dL 03/22/24 03/22/24 03/22/24 Range/Units 16:11 17:01 18:05 MCV (80.0-100.0) fL Plt Count (150-450) k/uL Lymphocytes # (1.0-4.8) k/uL Chloride (98-107) mmol/L Carbon Dioxide (22-30) mmol/L Creatinine (0.52-1.04) mg/dL Glucose (74-99) mg/dL POC Glucose (mg/dL) 267 H 240 H 236 H (70-110) mg/dL Phosphorus (2.5-4.5) mg/dL 03/22/24 03/22/24 03/22/24 Range/Units 19:02 20:04 20:44 MCV (80.0-100.0) fL Plt Count (150-450) k/uL Lymphocytes # (1.0-4.8) k/uL Chloride (98-107) mmol/L Carbon Dioxide (22-30) mmol/L Creatinine (0.52-1.04) mg/dL Glucose (74-99) mg/dL POC Glucose (mg/dL) 232 H 260 H 240 H (70-110) mg/dL Phosphorus (2.5-4.5) mg/dL 03/22/24 03/22/24 03/22/24 Range/Units 21:53 23:04 23:56 MCV (80.0-100.0) fL Plt Count (150-450) k/uL Lymphocytes # (1.0-4.8) k/uL Chloride (98-107) mmol/L Carbon Dioxide (22-30) mmol/L Creatinine (0.52-1.04) mg/dL Glucose (74-99) mg/dL POC Glucose (mg/dL) 261 H 277 H 296 H (70-110) mg/dL Phosphorus (2.5-4.5) mg/dL 03/23/24 03/23/24 03/23/24 Range/Units 01:00 01:45 01:55 MCV (80.0-100.0) fL Plt Count (150-450) k/uL Lymphocytes # (1.0-4.8) k/uL Chloride (98-107) mmol/L Carbon Dioxide 10 L (22-30) mmol/L Creatinine 0.48 L (0.52-1.04) mg/dL Glucose 204 H (74-99) mg/dL POC Glucose (mg/dL) 235 H 205 H (70-110) mg/dL Phosphorus (2.5-4.5) mg/dL 09/05/0603/23/24 03/23/24 Range/Units 02:56 03:57 04:42 MCV 101.4 H D (80.0-100.0) fL Plt Count 133 L (150-450) k/uL Lymphocytes # 0.7 L (1.0-4.8) k/uL Chloride (98-107) mmol/L Carbon Dioxide (22-30) mmol/L Creatinine (0.52-1.04) mg/dL Glucose (74-99) mg/dL POC Glucose (mg/dL) 192 H 129 H (70-110) mg/dL Phosphorus (2.5-4.5) mg/dL 03/23/24 03/23/24 03/23/24 Range/Units 04:42 04:57 05:56 MCV (80.0-100.0) fL Plt Count (150-450) k/uL Lymphocytes # (1.0-4.8) k/uL Chloride 113 H (98-107) mmol/L Carbon Dioxide 16 L (22-30) mmol/L Creatinine (0.52-1.04) mg/dL Glucose 112 H (74-99) mg/dL POC Glucose (mg/dL) 142 H 158 H (70-110) mg/dL Phosphorus (2.5-4.5) mg/dL 03/23/24 03/23/24 03/23/24 Range/Units 06:52 08:05 08:41 MCV (80.0-100.0) fL Plt Count (150-450) k/uL Lymphocytes # (1.0-4.8) k/uL Chloride (98-107) mmol/L Carbon Dioxide (22-30) mmol/L Creatinine (0.52-1.04) mg/dL Glucose (74-99) mg/dL POC Glucose (mg/dL) 192 H 245 H (70-110) mg/dL Phosphorus 0.6 L* (2.5-4.5) mg/dL 03/23/24 03/23/24 03/23/24 Range/Units 08:41 09:09 10:04 MCV (80.0-100.0) fL Plt Count (150-450) k/uL Lymphocytes # (1.0-4.8) k/uL Chloride 110 H (98-107) mmol/L Carbon Dioxide 16 L (22-30) mmol/L Creatinine (0.52-1.04) mg/dL Glucose 239 H (74-99) mg/dL POC Glucose (mg/dL) 246 H 304 H (70-110) mg/dL Phosphorus (2.5-4.5) mg/dL 03/23/24 03/23/24 03/23/24 Range/Units 11:04 11:51 12:14 MCV (80.0-100.0) fL Plt Count (150-450) k/uL Lymphocytes # (1.0-4.8) k/uL Chloride 109 H (98-107) mmol/L Carbon Dioxide 14 L (22-30) mmol/L Creatinine (0.52-1.04) mg/dL Glucose 269 H (74-99) mg/dL POC Glucose (mg/dL) 290 H 263 H (70-110) mg/dL Phosphorus (2.5-4.5) mg/dL 03/23/24 Range/Units 13:27 MCV (80.0-100.0) fL Plt Count (150-450) k/uL Lymphocytes # (1.0-4.8) k/uL Chloride (98-107) mmol/L Carbon Dioxide (22-30) mmol/L Creatinine (0.52-1.04) mg/dL Glucose (74-99) mg/dL POC Glucose (mg/dL) 335 H (70-110) mg/dL Phosphorus (2.5-4.5) mg/dL Assessment and Plan Assessment: Acute diabetic ketoacidosis, secondary to noncompliance History of alcohol abuse History of type 1 diabetes Plan: The patient was seen and evaluated Currently stable and on room air Labs and medications reviewed To be transitioned to Levemir and NovoLog sliding scale Continue DKA protocol Does not require ICU admission Transfer to the regular medical floor Educated regarding the importance of medication compliance I have personally seen and examined the patient, performed the documentation and the assessment and plan as written. Number of minutes spent on the visit: 10.
--- NOTE | 2024-03-23 14:17 | P.PN ---
Subjective Progress Note Date: 03/23/24 Patient is a 38-year-old female with history significant for insulin-dependent diabetes presenting to the emergency department with nausea/vomiting and abdominal pain. Unable to obtain history from patient due to altered mental status. According to the limited history provided to the emergency department she has had had 12 hours of intense nausea, vomiting, diarrhea as well as increased urination and thirst. She has not been on any of her diabetic medications except for metformin. She recently moved from [place] and all of her medications are confusing to her. She is prescribed lisinopril for her hypertension but has not been taking it over the last 2 days due to vomiting. She has a history of alcohol abuse - drinks 1/5 of vodka daily. Patient self reports that her last drink was 5 days ago per mother disagrees. She is noncompliant with her medications. EKG shows sinus tachycardia with ventricular rate of [address] abdomen pelvis: Mild circumferential wall thickening of the rectal wall with submucosal fat deposition, nonspecific genevieve mesentery which could represent stenosing p eritonitis, hepatic steatosis. WBCs 12.2, hemoglobin 15.9, hematocrit 50, MCV 110.3 with macrocytosis, sodium 136, potassium 6.2, carbon dioxide <5, anion gap unable to be calculated, glucose 616. Afebrile, hypertensive 187/148 on admission, tachycardic 140s. Urinalysis positive for ketones. 03/23 - patient seen at bedside today. Labs completed today indicate WBC 6.1, Hgb 13.3, Hct 40.4, MCV 101.4, PLT 133, chloride 113, HCO3 16, glucose 112, calcium 8.9. Patient is currently receiving fluids, D50.45% NaCl with KCl 150 mL/h, patient was receiving 9 units of insulin per hour however has not received any today. As of labs this morning, anion gap has closed and the patient has been titrated off the insulin drip, and given 30 units Levemir one-time and placed on 25 units at bedtime with low-dose sliding scale available. Will reevaluate and alter as needed. Additionally, patient placed on 100 mL/h of 0.45% saline. Patient's phosphorus was 0.6 this morning, will continue to monitor phosphorus levels with checks every 4 hours. Possibly due to dilution as result of increased fluid intake. REVIEW OF SYSTEMS: CONSTITUTIONAL: No fever, no malaise. CARDIOVASCULAR: No chest pain, no palpitations, no syncope. PULMONARY: No shortness of breath, no cough. GASTROINTESTINAL: No diarrhea, no nausea, no vomiting, no abdominal pain. NEUROLOGICAL: No headaches, no weakness. PHYSICAL EXAMINATION: GENERAL: The patient is alert and oriented x3, not in any acute distress. Well developed, well nourished. HEENT: Pupils are round and equally reacting to light. EOMI. No scleral icterus. No conjunctival pallor. Normocephalic, atraumatic. No pharyngeal erythema. No thyromegaly. CARDIOVASCULAR: S1 and S2 present. No murmurs, rubs, or gallops. PULMONARY: Chest is clear to auscultation, no wheezing or crackles. ABDOMEN: Soft, nontender, nondistended, normoactive bowel sounds. No palpable organomegaly. MUSCULOSKELETAL: No joint swelling or deformity. EXTREMITIES: No cyanosis, clubbing, or pedal edema. NEUROLOGICAL: Gross neurological examination did not reveal any focal deficits. Awake, alert, oriented x3. SKIN: No rashes. Assessment and plan #. Diabetic ketoacidosis IV insulin 0.1 units/kg/hr D5-0.45% 150 mls/hr DKA protocol in place As of this morning, patient's anion gap is closed, serum glucose level of 112 - patient titrated off insulin drip Patient given 30 units of Levemir 1 hour prior to stopping the drip, following that patient will receive 25 units at bedtime and have low-dose NovoLog available as needed. Will reevaluate and adjust as needed. Patient placed on 100 mL/h of 0.5% normal saline #. Alcohol withdrawal CIWA protocol Thiamine 100 mg daily #. Hyperkalemia, likely secondary to DKA - Resolved #. Lactic acidosis, likely secondary to DKA #. Sepsis, likely secondary to DKA As evidenced with the patient fulfilling the SIRS criteria DKA protocol Continue to monitor vital signs, monitor CBC, monitor CMP, continue telemetry monitoring, encourage use of incentive spirometer, continue postoperative antibiotic per protocol, postoperative pain management per primary monitor for excessive sedation. In regards to hypertension Regards to hyperlipidemia In regards to hypothyroid continue Synthyroid In regards to acute anemia,continue to monitor H&H transfuse for hemodynamic instability or hemoglobin less than 7 In regards to diabetes mellitus Labs and medication were reviewed. Continue with symptomatic treatment. Resume home medication. Monitor labs and vitals. DVT and GI prophylaxis. Further recommendations as per clinical course of the patient Dictation was produced using [employer] dictation software. please excuse any grammatical, word or spelling errors. Dr. Bennett MD I have performed a history and physical examination and medical decision making of this patient, discussed the same with the the resident, and agree with the assessment and plan as written. I performed brief physical exam. Objective - Vital Signs Vital signs: Vital Signs Temp 98.2 F 03/23/24 05:00 Pulse 111 H 03/23/24 08:00 Resp 18 03/23/24 08:00 BP 96/74 03/23/24 08:00 Pulse Ox 99 03/23/24 08:00 FiO2 Intake & Output 03/22/24 03/23/24 03/23/24 18:59 06:59 18:59 Intake Total 59.182 126.553 Output Total 1900 950 Balance -1840.818 -823.447 Weight 81.647 kg Intake: Intake, IV Titration 59.182 126.553 Amount Insulin Regular 100 unit 59.182 126.553 In Sodium Chloride 0.9% 100 ml @ 0.1 UNITS/KG/HR 8.246 mls/hr IV .[id number] [facility] Rx#:[id number] Output: Urine 1900 950 - Labs CBC & Chem 7: 03/24/24 04:26 03/24/24 04:26 Labs: Abnormal Lab Results - Last 24 Hours (Table) 03/22/24 03/22/24 03/22/24 Range/Units 08:33 08:51 08:51 WBC 12.2 H (3.8-10.6) k/uL Hct 50.8 H (34.0-46.0) % MCV 110.3 H (80.0-100.0) fL Plt Count (150-450) k/uL Lymphocytes # (1.0-4.8) k/uL Macrocytosis Marked A Sodium (137-145) mmol/L Potassium (3.5-5.1) mmol/L Chloride (98-107) mmol/L Carbon Dioxide (22-30) mmol/L Creatinine (0.52-1.04) mg/dL Glucose (74-99) mg/dL POC Glucose (mg/dL) >600 H* (70-110) mg/dL Plasma Lactic Acid Faisal (0.7-2.0) mmol/L Calcium (8.4-10.2) mg/dL Phosphorus (2.5-4.5) mg/dL AST (14-36) U/L ALT (4-34) U/L Alkaline Phosphatase (38-126) U/L Urine Protein 1+ H (Negative) Urine Glucose (UA) 4+ H (Negative) Urine Ketones 4+ H (Negative) Urine Blood Small H (Negative) Urine Mucus Rare H (None) /hpf 03/22/24 03/22/24 03/22/24 Range/Units 09:20 10:33 10:34 WBC (3.8-10.6) k/uL Hct (34.0-46.0) % MCV (80.0-100.0) fL Plt Count (150-450) k/uL Lymphocytes # (1.0-4.8) k/uL Macrocytosis Sodium 136 L (137-145) mmol/L Potassium 6.2 H* (3.5-5.1) mmol/L Chloride (98-107) mmol/L Carbon Dioxide <5 L* (22-30) mmol/L Creatinine (0.52-1.04) mg/dL Glucose 616 H* (74-99) mg/dL POC Glucose (mg/dL) 582 H* (70-110) mg/dL Plasma Lactic Acid Faisal 3.2 H* (0.7-2.0) mmol/L Calcium 8.0 L (8.4-10.2) mg/dL Phosphorus 6.3 H (2.5-4.5) mg/dL AST 187 H (14-36) U/L ALT 105 H (4-34) U/L Alkaline Phosphatase 151 H (38-126) U/L Urine Protein (Negative) Urine Glucose (UA) (Negative) Urine Ketones (Negative) Urine Blood (Negative) Urine Mucus (None) /hpf 03/22/24 03/22/24 03/22/24 Range/Units 11:54 12:02 13:01 WBC (3.8-10.6) k/uL Hct (34.0-46.0) % MCV (80.0-100.0) fL Plt Count (150-450) k/uL Lymphocytes # (1.0-4.8) k/uL Macrocytosis Sodium 136 L (137-145) mmol/L Potassium 6.5 H* (3.5-5.1) mmol/L Chloride (98-107) mmol/L Carbon Dioxide <5 L* (22-30) mmol/L Creatinine (0.52-1.04) mg/dL Glucose 554 H* (74-99) mg/dL POC Glucose (mg/dL) 533 H* 451 H (70-110) mg/dL Plasma Lactic Acid Faisal (0.7-2.0) mmol/L Calcium (8.4-10.2) mg/dL Phosphorus 5.4 H (2.5-4.5) mg/dL AST (14-36) U/L ALT (4-34) U/L Alkaline Phosphatase (38-126) U/L Urine Protein (Negative) Urine Glucose (UA) (Negative) Urine Ketones (Negative) Urine Blood (Negative) Urine Mucus (None) /hpf 03/22/24 03/22/24 03/22/24 Range/Units 14:02 14:55 15:56 WBC (3.8-10.6) k/uL Hct (34.0-46.0) % MCV (80.0-100.0) fL Plt Count (150-450) k/uL Lymphocytes # (1.0-4.8) k/uL Macrocytosis Sodium (137-145) mmol/L Potassium (3.5-5.1) mmol/L Chloride 114 H (98-107) mmol/L Carbon Dioxide <5 L* (22-30) mmol/L Creatinine (0.52-1.04) mg/dL Glucose 269 H (74-99) mg/dL POC Glucose (mg/dL) 340 H 320 H (70-110) mg/dL Plasma Lactic Acid Faisal (0.7-2.0) mmol/L Calcium (8.4-10.2) mg/dL Phosphorus (2.5-4.5) mg/dL AST (14-36) U/L ALT (4-34) U/L Alkaline Phosphatase (38-126) U/L Urine Protein (Negative) Urine Glucose (UA) (Negative) Urine Ketones (Negative) Urine Blood (Negative) Urine Mucus (None) /hpf 03/22/24 03/22/24 03/22/24 Range/Units 16:11 17:01 18:05 WBC (3.8-10.6) k/uL Hct (34.0-46.0) % MCV (80.0-100.0) fL Plt Count (150-450) k/uL Lymphocytes # (1.0-4.8) k/uL Macrocytosis Sodium (137-145) mmol/L Potassium (3.5-5.1) mmol/L Chloride (98-107) mmol/L Carbon Dioxide (22-30) mmol/L Creatinine (0.52-1.04) mg/dL Glucose (74-99) mg/dL POC Glucose (mg/dL) 267 H 240 H 236 H (70-110) mg/dL Plasma Lactic Acid Faisal (0.7-2.0) mmol/L Calcium (8.4-10.2) mg/dL Phosphorus (2.5-4.5) mg/dL AST (14-36) U/L ALT (4-34) U/L Alkaline Phosphatase (38-126) U/L Urine Protein (Negative) Urine Glucose (UA) (Negative) Urine Ketones (Negative) Urine Blood (Negative) Urine Mucus (None) /hpf 03/22/24 03/22/24 03/22/24 Range/Units 19:02 20:04 20:44 WBC (3.8-10.6) k/uL Hct (34.0-46.0) % MCV (80.0-100.0) fL Plt Count (150-450) k/uL Lymphocytes # (1.0-4.8) k/uL Macrocytosis Sodium (137-145) mmol/L Potassium (3.5-5.1) mmol/L Chloride (98-107) mmol/L Carbon Dioxide (22-30) mmol/L Creatinine (0.52-1.04) mg/dL Glucose (74-99) mg/dL POC Glucose (mg/dL) 232 H 260 H 240 H (70-110) mg/dL Plasma Lactic Acid Faisal (0.7-2.0) mmol/L Calcium (8.4-10.2) mg/dL Phosphorus (2.5-4.5) mg/dL AST (14-36) U/L ALT (4-34) U/L Alkaline Phosphatase (38-126) U/L Urine Protein (Negative) Urine Glucose (UA) (Negative) Urine Ketones (Negative) Urine Blood (Negative) Urine Mucus (None) /hpf 03/22/24 03/22/24 03/22/24 Range/Units 21:53 23:04 23:56 WBC (3.8-10.6) k/uL Hct (34.0-46.0) % MCV (80.0-100.0) fL Plt Count (150-450) k/uL Lymphocytes # (1.0-4.8) k/uL Macrocytosis Sodium (137-145) mmol/L Potassium (3.5-5.1) mmol/L Chloride (98-107) mmol/L Carbon Dioxide (22-30) mmol/L Creatinine (0.52-1.04) mg/dL Glucose (74-99) mg/dL POC Glucose (mg/dL) 261 H 277 H 296 H (70-110) mg/dL Plasma Lactic Acid Faisal (0.7-2.0) mmol/L Calcium (8.4-10.2) mg/dL Phosphorus (2.5-4.5) mg/dL AST (14-36) U/L ALT (4-34) U/L Alkaline Phosphatase (38-126) U/L Urine Protein (Negative) Urine Glucose (UA) (Negative) Urine Ketones (Negative) Urine Blood (Negative) Urine Mucus (None) /hpf 03/23/24 03/23/24 03/23/24 Range/Units 01:00 01:45 01:55 WBC (3.8-10.6) k/uL Hct (34.0-46.0) % MCV (80.0-100.0) fL Plt Count (150-450) k/uL Lymphocytes # (1.0-4.8) k/uL Macrocytosis Sodium (137-145) mmol/L Potassium (3.5-5.1) mmol/L Chloride (98-107) mmol/L Carbon Dioxide 10 L (22-30) mmol/L Creatinine 0.48 L (0.52-1.04) mg/dL Glucose 204 H (74-99) mg/dL POC Glucose (mg/dL) 235 H 205 H (70-110) mg/dL Plasma Lactic Acid Faisal (0.7-2.0) mmol/L Calcium (8.4-10.2) mg/dL Phosphorus (2.5-4.5) mg/dL AST (14-36) U/L ALT (4-34) U/L Alkaline Phosphatase (38-126) U/L Urine Protein (Negative) Urine Glucose (UA) (Negative) Urine Ketones (Negative) Urine Blood (Negative) Urine Mucus (None) /hpf 03/23/24 03/23/24 03/23/24 Range/Units 02:56 03:57 04:42 WBC (3.8-10.6) k/uL Hct (34.0-46.0) % MCV 101.4 H D (80.0-100.0) fL Plt Count 133 L (150-450) k/uL Lymphocytes # 0.7 L (1.0-4.8) k/uL Macrocytosis Sodium (137-145) mmol/L Potassium (3.5-5.1) mmol/L Chloride (98-107) mmol/L Carbon Dioxide (22-30) mmol/L Creatinine (0.52-1.04) mg/dL Glucose (74-99) mg/dL POC Glucose (mg/dL) 192 H 129 H (70-110) mg/dL Plasma Lactic Acid Faisal (0.7-2.0) mmol/L Calcium (8.4-10.2) mg/dL Phosphorus (2.5-4.5) mg/dL AST (14-36) U/L ALT (4-34) U/L Alkaline Phosphatase (38-126) U/L Urine Protein (Negative) Urine Glucose (UA) (Negative) Urine Ketones (Negative) Urine Blood (Negative) Urine Mucus (None) /hpf 03/23/24 03/23/24 03/23/24 Range/Units 04:42 04:57 05:56 WBC (3.8-10.6) k/uL Hct (34.0-46.0) % MCV (80.0-100.0) fL Plt Count (150-450) k/uL Lymphocytes # (1.0-4.8) k/uL Macrocytosis Sodium (137-145) mmol/L Potassium (3.5-5.1) mmol/L Chloride 113 H (98-107) mmol/L Carbon Dioxide 16 L (22-30) mmol/L Creatinine (0.52-1.04) mg/dL Glucose 112 H (74-99) mg/dL POC Glucose (mg/dL) 142 H 158 H (70-110) mg/dL Plasma Lactic Acid Faisal (0.7-2.0) mmol/L Calcium (8.4-10.2) mg/dL Phosphorus (2.5-4.5) mg/dL AST (14-36) U/L ALT (4-34) U/L Alkaline Phosphatase (38-126) U/L Urine Protein (Negative) Urine Glucose (UA) (Negative) Urine Ketones (Negative) Urine Blood (Negative) Urine Mucus (None) /hpf 03/23/24 03/23/24 Range/Units 06:52 08:05 WBC (3.8-10.6) k/uL Hct (34.0-46.0) % MCV (80.0-100.0) fL Plt Count (150-450) k/uL Lymphocytes # (1.0-4.8) k/uL Macrocytosis Sodium (137-145) mmol/L Potassium (3.5-5.1) mmol/L Chloride (98-107) mmol/L Carbon Dioxide (22-30) mmol/L Creatinine (0.52-1.04) mg/dL Glucose (74-99) mg/dL POC Glucose (mg/dL) 192 H 245 H (70-110) mg/dL Plasma Lactic Acid Faiasl (0.7-2.0) mmol/L Calcium (8.4-10.2) mg/dL Phosphorus (2.5-4.5) mg/dL AST (14-36) U/L ALT (4-34) U/L Alkaline Phosphatase (38-126) U/L Urine Protein (Negative) Urine Glucose (UA) (Negative) Urine Ketones (Negative) Urine Blood (Negative) Urine Mucus (None) /hpf
[2024-03-23 14:49] LABS: Glucose,Whole Blood 489 mg/dL (70-110)
[2024-03-23 16:14] LABS: Glucose,Whole Blood 392 mg/dL (70-110)
[2024-03-23] MEDS: INSULIN ASPART (NovoLOG) 100 UNIT/ML VIAL SQ SCH (16:41)
[2024-03-23 19:56] LABS: Glucose,Whole Blood 348 mg/dL (70-110)
[2024-03-23] MEDS ORDERED: INSULIN DETEMIR (LEVEMIR) 100 UNIT/ML SYR SQ SCH (21:00)
[2024-03-23] MEDS: BENZONATATE 100 MG CAP PO PRN (21:02)
[2024-03-23] MEDS: traMADol 50 MG TAB PO PRN (21:02)
[2024-03-24 07:11] LABS: Glucose,Whole Blood 337 mg/dL (70-110)
[2024-03-24 08:44] LABS: Basophils # (A) 0.05 X 10*3/uL (0.00-0.10); Basophils % (A) 1.1 %; Eosinophils # (A) 0.06 X 10*3/uL (0.04-0.35); Eosinophils % (A) 1.4 %; HCT 39.6 % (37.2-46.3); Lymphocytes # (A) 1.51 X 10*3/uL (0.90-5.00); MCH 32.7 pg (27.0-32.0); MCHC 32.8 g/dL (32.0-37.0); MCV 99.7 FL (80.0-97.0); Mean Platelet Volume 9.8 FL (9.5-12.2); Monocytes # (A) 0.37 X 10*3/uL (0.20-1.00); Monocytes % (A) 8.3 %; NRBC Per 100 WBC 0 X 10*3/uL (0.00-0.01); Neutrophils # (A) 2.43 X 10*3/uL (1.80-7.70); Neutrophils % (A) 54.7 %; Platelet Count 113 X 10*3/uL (140-440); RBC 3.97 X 10*6/uL (4.10-5.20); RDW 13.2 % (11.5-14.5); WBC 4.44 X 10*3/uL (4.50-10.00)
[2024-03-24 08:48] LABS: ALT 85 U/L (8-44); AST 111 U/L (13-35); Albumin 3.6 g/dL (3.8-4.9); Albumin/Globulin Ratio 1.44 Ratio (1.60-3.17); Alkaline Phosphatase 112 U/L (41-126); Blood Urea Nitrogen 9.1 mg/dL (9.0-27.0); Calcium 8.8 mg/dL (8.7-10.3); Carbon Dioxide 16.9 mmol/L (21.6-31.8); Chloride 104 mmol/L (96-109); Globulin 2.5 g/dL (1.6-3.3); Glucose 280 mg/dL (70-110); Potassium 3.1 mmol/L (3.5-5.5); Sodium 137 mmol/L (135-145); Total Bilirubin 0.5 mg/dL (0.3-1.2); Total Protein 6.1 g/dL (6.2-8.2)
[2024-03-24] MEDS ORDERED: ACETAMINOPHEN TAB 325 MG TAB PO PRN (09:16)
[2024-03-24] MEDS ORDERED: Potassium Replacement Protocol 1 EACH MISC MISCELLANE PRN (09:19)
[2024-03-24] MEDS: POTASSIUM CHLORIDE ER 20 MEQ TAB.ER PO SCH (09:53)
[2024-03-24] MEDS: SERTRALINE 100 MG TAB PO SCH (09:53)
[2024-03-24] MEDS: metFORMIN 500 MG TAB PO SCH (09:53)
[2024-03-24] MEDS: lisinopriL 20 MG TAB PO SCH (09:54)
[2024-03-24] MEDS: PANTOPRAZOLE 40 MG TABLET PO SCH (09:54)
[2024-03-24] MEDS: INSULIN DETEMIR (LEVEMIR) 100 UNIT/ML SYR SQ SCH ×2 (09:54→20:26)
[2024-03-24] MEDS: FOLIC ACID-VIT B COMPLEX-VIT C 1 CAP PO SCH (09:54)
[2024-03-24] MEDS: POTAS-SOD-PHOS 278-164-250 MG 1 EACH PACKET PO SCH (11:24)
[2024-03-24 11:52] VITALS: BMI 30.9
[2024-03-24 12:16] LABS: Glucose,Whole Blood 339 mg/dL (70-110)
--- NOTE | 2024-03-24 13:45 | P.PN ---
Subjective Progress Note Date: 03/24/24 This is a 38-year-old female with history of type 1 diabetes, patient is not compliant with her medications, presented to the ER with 1 day history of nausea vomiting diarrhea, increased urination, and excessive thirst. Patient is also known to have history of alcohol abuse, she drinks 1/5 of vodka daily. Last drink was supposedly 5 days ago, patient is not a great historian and I was asked to see her while in the ER for ICU admission as workup in the ER revealed that the patient has acute diabetic ketoacidosis. Patient has a significant anion gap metabolic acidosis, bicarb is less than 5, blood sugar is over 600. And she had positive ketones in the urine. I saw the patient in the ER, and rec ommended ICU admission. While in the ER the patient was receiving fluid at 150 cc/h she was on insulin drip at 9 units/h and she is not a great historian. Anion gap was over 23. Renal profile is normal.WBC count is 12.2 hemoglobin 15.9, The patient is seen today March 23, 2024 in follow-up in the emergency department. She is currently sitting up on the stretcher. Awake and alert in no acute distress. She is currently on D5 and half-normal saline with 20 of KCl at 150 mL/h. Continued on insulin drip at 4.31 units/kg/h.. She is admitting to drinking at least 1 pint of liquor a day. She remains on the CIWA protocol. She has been maintaining good O2 saturations in the high 90s. She has been afebrile. Hemodynamically stable. Sodium 137. Potassium 3.6. Bicarb 14. Anion gap 14. BUN 8. Creatinine 0.56. Glucose 269. The patient is seen today March 24, 2024 in follow-up on the regular medical floor. She is currently sitting up in bed. Awake and alert in no acute dis tress. Denies any worsening shortness of breath, cough or congestion. Denies any symptoms of alcohol withdrawal. Her last Ativan approximately 6 PM on March 23, 2024. She is currently on Glucophage, Levemir and NovoLog sliding scale. She is receiving 0.45% odium chloride at 100 mL/h. White count 4.4. Hemoglobin 13.0. Platelets 113. Sodium 137. Potassium 3.1. Bicarb 17. BUN 9. Creatinine 0.7. Glucose 280. Objective - Vital Signs Vital signs: Vital Signs Temp 98.5 F 03/24/24 07:06 Pulse 114 H 03/24/24 07:06 Resp 17 03/24/24 07:06 BP 142/99 03/24/24 07:06 Pulse Ox 98 03/24/24 07:06 FiO2 Intake & Output 03/23/24 03/24/24 03/24/24 18:59 06:59 18:59 Intake Total 15.171 120 Output Total 0 Balance 15.171 120 Weight 81.647 kg 81.647 kg Intake: Intake, IV Titration 15.171 Amount Insulin Regular 100 unit 15.171 In Sodium Chloride 0.9% 100 ml @ 0.1 UNITS/KG/HR 8.246 mls/hr IV .[id number] [facility] Rx#:[id number] Oral 120 Output: Urine 0 Other: Voiding Method Toilet # Voids 5 - Exam GENERAL EXAM: Alert, oriented 38-year-old female, on room air, in no apparent distress. HEAD: Normocephalic. EYES: Normal reaction of pupils, equal size. NOSE: Clear with pink turbinates. THROAT: No erythema or exudates. NECK: No masses, no JVD. CHEST: No chest wall deformity. LUNGS: Equal air entry with no crackles, wheeze, rhonchi or dullness. CVS: S1 and S2 normal with no audible murmur, regular rhythm. ABDOMEN: No hepatosplenomegaly, normal bowel sounds, no guarding or rigidity. SPINE: No scoliosis or deformity SKIN: No rashes CENTRAL NERVOUS SYSTEM: No focal deficits, tone is normal in all 4 extremities. EXTREMITIES: There is no peripheral edema. No clubbing, no cyanosis. Peripheral pulses are intact. - Labs CBC & Chem 7: 03/24/24 04:26 03/24/24 04:26 Labs: Abnormal Lab Results - Last 24 Hours (Table) 03/23/24 03/23/24 03/23/24 Range/Units 11:51 11:51 14:47 WBC (4.50-10.00) X 10*3/uL RBC (4.10-5.20) X 10*6/uL MCV (80.0-97.0) FL MCH (27.0-32.0) pg Plt Count (140-440) X 10*3/uL D-Dimer (<0.60) mg/L FEU Potassium (3.5-5.5) mmol/L Carbon Dioxide (21.6-31.8) mmol/L Anion Gap (4.00-12.00) mmol/L Glucose (70-110) mg/dL POC Glucose (mg/dL) 489 H (70-110) mg/dL Hemoglobin A1c 11.7 H (<=6.0) % Phosphorus <0.5 L* (2.5-4.5) mg/dL AST (13-35) U/L ALT (8-44) U/L Total Protein (6.2-8.2) g/dL Albumin (3.8-4.9) g/dL Albumin/Globulin Ratio (1.60-3.17) Ratio TSH (0.465-4.680) mIU/L 03/23/24 03/23/24 03/24/24 Range/Units 16:12 19:55 04:26 WBC 4.44 L (4.50-10.00) X 10*3/uL RBC 3.97 L (4.10-5.20) X 10*6/uL MCV 99.7 H (80.0-97.0) FL MCH 32.7 H (27.0-32.0) pg Plt Count 113 L (140-440) X 10*3/uL D-Dimer (<0.60) mg/L FEU Potassium (3.5-5.5) mmol/L Carbon Dioxide (21.6-31.8) mmol/L Anion Gap (4.00-12.00) mmol/L Glucose (70-110) mg/dL POC Glucose (mg/dL) 392 H 348 H (70-110) mg/dL Hemoglobin A1c (<=6.0) % Phosphorus (2.5-4.5) mg/dL AST (13-35) U/L ALT (8-44) U/L Total Protein (6.2-8.2) g/dL Albumin (3.8-4.9) g/dL Albumin/Globulin Ratio (1.60-3.17) Ratio TSH (0.465-4.680) mIU/L 09/06/0603/24/24 03/24/24 Range/Units 04:26 07:10 12:14 WBC (4.50-10.00) X 10*3/uL RBC (4.10-5.20) X 10*6/uL MCV (80.0-97.0) FL MCH (27.0-32.0) pg Plt Count (140-440) X 10*3/uL D-Dimer 0.71 H (<0.60) mg/L FEU Potassium 3.1 L (3.5-5.5) mmol/L Carbon Dioxide 16.9 L (21.6-31.8) mmol/L Anion Gap 16.10 H (4.00-12.00) mmol/L Glucose 280 H (70-110) mg/dL POC Glucose (mg/dL) 337 H (70-110) mg/dL Hemoglobin A1c (<=6.0) % Phosphorus (2.5-4.5) mg/dL AST 111 H (13-35) U/L ALT 85 H (8-44) U/L Total Protein 6.1 L (6.2-8.2) g/dL Albumin 3.6 L (3.8-4.9) g/dL Albumin/Globulin Ratio 1.44 L (1.60-3.17) Ratio TSH (0.465-4.680) mIU/L 03/24/24 03/24/24 Range/Units 12:14 12:15 WBC (4.50-10.00) X 10*3/uL RBC (4.10-5.20) X 10*6/uL MCV (80.0-97.0) FL MCH (27.0-32.0) pg Plt Count (140-440) X 10*3/uL D-Dimer (<0.60) mg/L FEU Potassium (3.5-5.5) mmol/L Carbon Dioxide (21.6-31.8) mmol/L Anion Gap (4.00-12.00) mmol/L Glucose (70-110) mg/dL POC Glucose (mg/dL) 339 H (70-110) mg/dL Hemoglobin A1c (<=6.0) % Phosphorus (2.5-4.5) mg/dL AST (13-35) U/L ALT (8-44) U/L Total Protein (6.2-8.2) g/dL Albumin (3.8-4.9) g/dL Albumin/Globulin Ratio (1.60-3.17) Ratio TSH 5.070 H (0.465-4.680) mIU/L Assessment and Plan Assessment: Acute diabetic ketoacidosis, secondary to noncompliance History of alcohol abuse History of type 1 diabetes Plan: The patient was seen and evaluated Currently stable and on room air Labs and medications reviewed The patient states she recently moved here from [place] Encouraged to get a primary care provider as soon as possible Encouraged possible airport screener evaluation as well Educated regarding the importance of medication compliance Educated regarding the importance of alcohol cessation Cleared for discharge from the critical care standpoint I have personally seen and examined the patient, performed the documentation and the assessment and plan as written. Number of minutes spent on the visit: 10.
[2024-03-24 14:27] LABS: T4, Free (Free Thyroxine) 1.22 ng/dL (0.78-2.19)
--- NOTE | 2024-03-24 16:01 | P.PN ---
Subjective Progress Note Date: 03/24/24 Patient is a 38-year-old female with history significant for insulin-dependent diabetes presenting to the emergency department with nausea/vomiting and abdominal pain. Unable to obtain history from patient due to altered mental status. According to the limited history provided to the emergency department she has had had 12 hours of intense nausea, vomiting, diarrhea as well as increased urination and thirst. She has not been on any of her diabetic medications except for metformin. She recently moved from [place] and all of her medications are confusing to her. She is prescribed lisinopril for her hypertension but has not been taking it over the last 2 days due to vomiting. She has a history of alcohol abuse - drinks 1/5 of vodka daily. Patient self reports that her last drink was 5 days ago per mother disagrees. She is noncompliant with her medications. EKG shows sinus tachycardia with ventricular rate of [address] abdomen pelvis: Mild circumferential wall thickening of the rectal wall with submucosal fat deposition, nonspecific genevieve mesentery which could represent stenosing p eritonitis, hepatic steatosis. WBCs 12.2, hemoglobin 15.9, hematocrit 50, MCV 110.3 with macrocytosis, sodium 136, potassium 6.2, carbon dioxide <5, anion gap unable to be calculated, glucose 616. Afebrile, hypertensive 187/148 on admission, tachycardic 140s. Urinalysis positive for ketones. 03/23 - patient seen at bedside today. Labs completed today indicate WBC 6.1, Hgb 13.3, Hct 40.4, MCV 101.4, PLT 133, chloride 113, HCO3 16, glucose 112, calcium 8.9. Patient is currently receiving fluids, D50.45% NaCl with KCl 150 mL/h, patient was receiving 9 units of insulin per hour however has not received any today. As of labs this morning, anion gap has closed and the patient has been titrated off the insulin drip, and given 30 units Levemir one-time and placed on 25 units at bedtime with low-dose sliding scale available. Will reevaluate and alter as needed. Additionally, patient placed on 100 mL/h of 0.45% saline. Patient's phosphorus was 0.6 this morning, will continue to monitor phosphorus levels with checks every 4 hours. Possibly due to dilution as result of increased fluid intake. 03/24 - Patient seen at bedside today. Patient was titrated off of insulin drip yesterday after her anion gap closed, was given 30 units Levemir to bridge the cessation of the insulin drip, switched to 25 units long-acting insulin in the morning along with sliding scale available as needed with meals. Patient's diet was advanced to diabetic diet. Labs drawn today are currently pending. Most recent POC glucose as of 7:10 AM was 337. Patient's blood pressure earlier this morning 142/99 with a heart rate of 114, respiratory rate of 17 and while having an oxygen saturation of 90% while on room air. Patient has continued to be tachycardic, D-dimer and TSH both noted to be elevated. Will follow-up with chest x-ray and EKG. Additionally add an additional 25 units long-acting insulin every night. His sugars continue to be elevated about 300 Labs done - Currently pending REVIEW OF SYSTEMS: CONSTITUTIONAL: No fever, no malaise. CARDIOVASCULAR: No chest pain, no palpitations, no syncope. PULMONARY: No shortness of breath, no cough. GASTROINTESTINAL: No diarrhea, no nausea, no vomiting, no abdominal pain. NEUROLOGICAL: No headaches, no weakness. PHYSICAL EXAMINATION: GENERAL: The patient is alert and oriented x3, not in any acute distress. Well developed, well nourished. HEENT: Pupils are round and equally reacting to light. EOMI. No scleral icterus. No conjunctival pallor. Normocephalic, atraumatic. No pharyngeal erythema. No thyromegaly. CARDIOVASCULAR: S1 and S2 present. No murmurs, rubs, or gallops. PULMONARY: Chest is clear to auscultation, no wheezing or crackles. ABDOMEN: Soft, nontender, nondistended, normoactive bowel sounds. No palpable organomegaly. MUSCULOSKELETAL: No joint swelling or deformity. EXTREMITIES: No cyanosis, clubbing, or pedal edema. NEUROLOGICAL: Gross neurological examination did not reveal any focal deficits. Awake, alert, oriented x3. SKIN: No rashes. Assessment and plan #. Diabetic ketoacidosis IV insulin 0.1 units/kg/hr D5-0.45% 150 mls/hr DKA protocol in place As of this morning, patient's anion gap is closed, serum glucose level of 112 - patient titrated off insulin drip Patient given 30 units of Levemir 1 hour prior to stopping the drip, following that patient will receive 25 units at bedtime and have low-dose NovoLog available as needed. Will reevaluate and adjust as needed. Patient placed on 100 mL/h of 0.5% normal saline Labs completed today (03/24) are currently pending Gap is closed however sugars continue to be greater than 300, patient was on 25 units Levemir in the morning, however will try 25 units in the morning and 25 units before bed #. Alcohol withdrawal CIWA protocol Thiamine 100 mg daily #. Persistent tachycardia Patient has maintained state of being tachycardic, most recently with a heart rate of 114 early this morning (03/24) D-dimer elevated at 0.71, TSH elevated at 5.070; EKG and chest x-ray ordered to rule out potential PE #. Hyperkalemia, likely secondary to DKA - Resolved #. Lactic acidosis, likely secondary to DKA #. Sepsis, likely secondary to DKA As evidenced with the patient fulfilling the SIRS criteria DKA protocol Continue to monitor vital signs, monitor CBC, monitor CMP, continue telemetry monitoring. Labs and medication were reviewed. Continue with symptomatic treatment. Resume home medication. Monitor labs and vitals. DVT and GI prophylaxis. Further recommendations as per clinical course of the patient Dictation was produced using [employer] dictation software. please excuse any grammatical, word or spelling errors. Dr. Bennett MD I have performed a history and physical examination and medical decision making of this patient, discussed the same with the the resident, and agree with the assessment and plan as written. I performed brief physical exam. Objective - Vital Signs Vital signs: Vital Signs Temp 98.5 F 03/24/24 07:06 Pulse 114 H 03/24/24 07:06 Resp 17 03/24/24 07:06 BP 142/99 03/24/24 07:06 Pulse Ox 98 03/24/24 07:06 FiO2 Intake & Output 03/23/24 03/24/24 03/24/24 18:59 06:59 18:59 Intake Total 15.171 120 Output Total 0 Balance 15.171 120 Weight 81.647 kg Intake: Intake, IV Titration 15.171 Amount Insulin Regular 100 unit 15.171 In Sodium Chloride 0.9% 100 ml @ 0.1 UNITS/KG/HR 8.246 mls/hr IV .[id number] [facility] Rx#:[id number] Oral 120 Output: Urine 0 Other: Voiding Method Toilet # Voids 5 - Labs CBC & Chem 7: 03/25/24 02:42 03/25/24 02:42 Labs: Abnormal Lab Results - Last 24 Hours (Table) 03/23/24 03/23/24 03/23/24 Range/Units 08:41 08:41 09:09 Chloride 110 H (98-107) mmol/L Carbon Dioxide 16 L (22-30) mmol/L Glucose 239 H (74-99) mg/dL POC Glucose (mg/dL) 246 H (70-110) mg/dL Hemoglobin A1c (<=6.0) % Phosphorus 0.6 L* (2.5-4.5) mg/dL 03/23/24 03/23/24 03/23/24 Range/Units 10:04 11:04 11:51 Chloride (98-107) mmol/L Carbon Dioxide (22-30) mmol/L Glucose (74-99) mg/dL POC Glucose (mg/dL) 304 H 290 H (70-110) mg/dL Hemoglobin A1c (<=6.0) % Phosphorus <0.5 L* (2.5-4.5) mg/dL 03/23/24 03/23/24 03/23/24 Range/Units 11:51 11:51 12:14 Chloride 109 H (98-107) mmol/L Carbon Dioxide 14 L (22-30) mmol/L Glucose 269 H (74-99) mg/dL POC Glucose (mg/dL) 263 H (70-110) mg/dL Hemoglobin A1c 11.7 H (<=6.0) % Phosphorus (2.5-4.5) mg/dL 03/23/24 03/23/24 03/23/24 Range/Units 13:27 14:47 16:12 Chloride (98-107) mmol/L Carbon Dioxide (22-30) mmol/L Glucose (74-99) mg/dL POC Glucose (mg/dL) 335 H 489 H 392 H (70-110) mg/dL Hemoglobin A1c (<=6.0) % Phosphorus (2.5-4.5) mg/dL 03/23/24 03/24/24 Range/Units 19:55 07:10 Chloride (98-107) mmol/L Carbon Dioxide (22-30) mmol/L Glucose (74-99) mg/dL POC Glucose (mg/dL) 348 H 337 H (70-110) mg/dL Hemoglobin A1c (<=6.0) % Phosphorus (2.5-4.5) mg/dL
[2024-03-24 17:08] LABS: Glucose,Whole Blood 172 mg/dL (70-110)
[2024-03-24 20:12] LABS: Glucose,Whole Blood 354 mg/dL (70-110)
[2024-03-25 07:25] LABS: Glucose,Whole Blood 224 mg/dL (70-110)
--- NOTE | 2024-03-25 08:30 | XR ---
EXAMINATION TYPE: XR chest 1V portable DATE OF EXAM: 03/25/2024 COMPARISON: NONE HISTORY: Chest pain TECHNIQUE: Single frontal view of the chest is obtained. FINDINGS: There is no focal air space opacity, pleural effusion, or pneumothorax seen. The cardiac silhouette size is within normal limits. The osseous structures are intact. IMPRESSION: 1. No acute process.
[2024-03-25 08:45] LABS: Basophils # (A) 0.04 X 10*3/uL (0.00-0.10); Basophils % (A) 0.8 %; Eosinophils # (A) 0.08 X 10*3/uL (0.04-0.35); Eosinophils % (A) 1.6 %; HGB 12.5 g/dL (12.0-15.0); Lymphocytes # (A) 1.66 X 10*3/uL (0.90-5.00); Lymphocytes % (A) 34.2 %; MCH 32.6 pg (27.0-32.0); MCHC 32.9 g/dL (32.0-37.0); Mean Platelet Volume 9.5 FL (9.5-12.2); Monocytes % (A) 8.2 %; NRBC Per 100 WBC 0 X 10*3/uL (0.00-0.01); Neutrophils # (A) 2.64 X 10*3/uL (1.80-7.70); Neutrophils % (A) 54.6 %; Platelet Count 93 X 10*3/uL (140-440); RBC 3.84 X 10*6/uL (4.10-5.20); RDW 13.2 % (11.5-14.5); WBC 4.85 X 10*3/uL (4.50-10.00)
[2024-03-25 08:56] LABS: ALT 60 U/L (8-44); AST 57 U/L (13-35); Albumin 3.3 g/dL (3.8-4.9); Albumin/Globulin Ratio 1.38 Ratio (1.60-3.17); Alkaline Phosphatase 103 U/L (41-126); Blood Urea Nitrogen 8.1 mg/dL (9.0-27.0); Calcium 8.3 mg/dL (8.7-10.3); Carbon Dioxide 19.9 mmol/L (21.6-31.8); Chloride 108 mmol/L (96-109); Globulin 2.4 g/dL (1.6-3.3); Glucose 213 mg/dL (70-110); Phosphorus 2.6 mg/dL (2.4-5.1); Potassium 2.9 mmol/L (3.5-5.5); Sodium 141 mmol/L (135-145); Total Bilirubin 0.4 mg/dL (0.3-1.2); Total Protein 5.7 g/dL (6.2-8.2)
--- NOTE | 2024-03-25 09:35 | CDI ---
Documentation Clarification Form Date: 03/25/2024 08:38:27 AM From: Pauly Ferraro RN CCDS Phone: [phone] Admit Date: 03/22/2024 12:32:00 PM Patient Name: Vanessa Haskins Visit Number: [id number] Discharge Date: ATTENTION: The Clinical Documentation Specialists (CDI) and [facility] Coding Staff appreciate your assistance in clarifying documentation. Please respond to the clarification below the line at the bottom and electronically sign. The CDI & [facility] Coding staff will review the response and follow-up if needed. Please note: Queries are made part of the Legal Health Record. If you have any questions, please contact the author of this message via ITS. Doctor Jennifer Guajardo Sepsis is documented in the HP, 03/22 and subsequent medicine progress notes 03/23 and 03/24 which may lack sufficient clinical evidence/support in the medical record. Additional clarification is requested. History/Risk Factors: 38 year old female presents to the ED with nausea, vomiting, abdominal pain, increased urination and thirst. The patient hasnt taken her diabetic medications except metformin. The patient hasnt taken Lisinopril for the past two days due to vomiting. Medical history: DM1, HTN, Anxiety and Alcohol abuse drinks a fifth of vodka daily and last drink was five days ago. 03/22, Clinical Indicators: VSS: B/P 187/148; HR 140; Temp 97.6, RR 26, SpO2 97% ra Wbc 03/22: 12.2 Lactic acid 03/22: 3.2 Other Labs 03/22: Potassium 6.2, Glucose 616, Acetone Qual Positive, Alk phos 151, ALT 105, AST 187, Phosphorus 6.3, Calcium 8.0 HP, 03/22: Sepsis, likely secondary to DKA Medicine progress notes 03/23 03/24: Sepsis, likely secondary to DKA as evidenced with the patient fulfilling the SIRS criteria Treatment: 03/22 Ativan IVP x 1; 03/22 0.9NS 3L IVPB x 1; 03/22 Solumedrol IV x 1; Toradol IV x 1; 03/22 03/23 Insulin Human Regular 101mls @ 8.246mls/hr IV ; 03/22- 03/23 0.9ns 200cc/hr IV; 03/22 03/23 D5% 1/2NS Kcl 20meq 1,000mls @ 150mls/hr; 03/23 Levemir 30 Units Sq x 1; 03/23 03/25 0.45% 1000mls @ 100mlshr; 03/23 Novolog ACHS sq s/s; 03/24 Levemir 25 Units Sq Daily, 03/24 Glucophage 1,000mg po BID w/ meals; 03/24 Levemir 25 Units Sq HS JORGE L, 03/22 Ativan 1mg IV Q2H PRN CIWA 8 or 9. After work up and study, please clarify which diagnosis is most appropriate? [x ] Sepsis ruled out [ ] Sepsis is a valid diagnosis as evidence by the following: (Please add rationale): [ ] Non-Infectious SIRS due to (please specify) [ ] Sepsis and SIRS ruled out [ ] Other, please specify [ ] Unable to determine SIRS Criteria: 2 or more of the following may indicate SIRS Temperature < 96.8F (36C) or > 101.0F (38.3C) Heart Rate > 90 bpm Respiratory Rate > 20 breaths/min or PaCO2 < 32 mmHg White Blood Cell Count > 12,000 or < 4,000 cells/mm3 or > 10% bands (Template Last Reviewed: July 2023) MTDD
[2024-03-25 12:10] LABS: Glucose,Whole Blood 296 mg/dL (70-110)
--- NOTE | 2024-03-25 12:14 | P.PN ---
Subjective Progress Note Date: 03/25/24 This is a 38-year-old female with history of type 1 diabetes, patient is not compliant with her medications, presented to the ER with 1 day history of nausea vomiting diarrhea, increased urination, and excessive thirst. Patient is also known to have history of alcohol abuse, she drinks 1/5 of vodka daily. Last drink was supposedly 5 days ago, patient is not a great historian and I was asked to see her while in the ER for ICU admission as workup in the ER revealed that the patient has acute diabetic ketoacidosis. Patient has a significant anion gap metabolic acidosis, bicarb is less than 5, blood sugar is over 600. And she had positive ketones in the urine. I saw the patient in the ER, and rec ommended ICU admission. While in the ER the patient was receiving fluid at 150 cc/h she was on insulin drip at 9 units/h and she is not a great historian. Anion gap was over 23. Renal profile is normal.WBC count is 12.2 hemoglobin 15.9, The patient is seen today March 23, 2024 in follow-up in the emergency department. She is currently sitting up on the stretcher. Awake and alert in no acute distress. She is currently on D5 and half-normal saline with 20 of KCl at 150 mL/h. Continued on insulin drip at 4.31 units/kg/h.. She is admitting to drinking at least 1 pint of liquor a day. She remains on the CIWA protocol. She has been maintaining good O2 saturations in the high 90s. She has been afebrile. Hemodynamically stable. Sodium 137. Potassium 3.6. Bicarb 14. Anion gap 14. BUN 8. Creatinine 0.56. Glucose 269. The patient is seen today March 24, 2024 in follow-up on the regular medical floor. She is currently sitting up in bed. Awake and alert in no acute dis tress. Denies any worsening shortness of breath, cough or congestion. Denies any symptoms of alcohol withdrawal. Her last Ativan approximately 6 PM on March 23, 2024. She is currently on Glucophage, Levemir and NovoLog sliding scale. She is receiving 0.45% odium chloride at 100 mL/h. White count 4.4. Hemoglobin 13.0. Platelets 113. Sodium 137. Potassium 3.1. Bicarb 17. BUN 9. Creatinine 0.7. Glucose 280. The patient is seen today March 25, 2024 in follow-up on the regular medical floor. She is sitting up having breakfast. Awake and alert in no acute distress. Maintaining good O2 saturations in the 90s on room air. Continues to show no acute pulmonary process. 141. Potassium 2.9. Bicarb 20. BUN 8. Creatinine 0.5. Glucose 213. Transitioned to Levemir and Glucophage. Objective - Vital Signs Vital signs: Vital Signs Temp 98.6 F 03/25/24 07:25 Pulse 105 H 03/25/24 07:25 Resp 17 03/25/24 07:25 BP 161/113 03/25/24 07:25 Pulse Ox 98 03/25/24 07:25 FiO2 Intake & Output 03/24/24 03/25/24 03/25/24 18:59 06:59 18:59 Intake Total 1080 1200 Balance 1080 1200 Weight 81.647 kg Intake: Oral 1080 1200 Other: Voiding Method Toilet # Voids 3 - Exam GENERAL EXAM: Alert, oriented 38-year-old female, sitting up in bed having breakfast, on room air, in no apparent distress. HEAD: Normocephalic. EYES: Normal reaction of pupils, equal size. NOSE: Clear with pink turbinates. THROAT: No erythema or exudates. NECK: No masses, no JVD. CHEST: No chest wall deformity. LUNGS: Equal air entry with no crackles, wheeze, rhonchi or dullness. CVS: S1 and S2 normal with no audible murmur, regular rhythm. ABDOMEN: No hepatosplenomegaly, normal bowel sounds, no guarding or rigidity. SPINE: No scoliosis or deformity SKIN: No rashes CENTRAL NERVOUS SYSTEM: No focal deficits, tone is normal in all 4 extremities. EXTREMITIES: There is no peripheral edema. No clubbing, no cyanosis. Peripheral pulses are intact. - Labs CBC & Chem 7: 03/25/24 02:42 03/25/24 02:42 Labs: Abnormal Lab Results - Last 24 Hours (Table) 03/24/24 03/24/24 03/24/24 Range/Units 12:14 12:14 12:15 RBC (4.10-5.20) X 10*6/uL MCV (80.0-97.0) FL MCH (27.0-32.0) pg Plt Count (140-440) X 10*3/uL D-Dimer 0.71 H (<0.60) mg/L FEU Potassium (3.5-5.5) mmol/L Carbon Dioxide (21.6-31.8) mmol/L Anion Gap (4.00-12.00) mmol/L BUN (9.0-27.0) mg/dL Creatinine (0.6-1.5) mg/dL Glucose (70-110) mg/dL POC Glucose (mg/dL) 339 H (70-110) mg/dL Calcium (8.7-10.3) mg/dL AST (13-35) U/L ALT (8-44) U/L Total Protein (6.2-8.2) g/dL Albumin (3.8-4.9) g/dL Albumin/Globulin Ratio (1.60-3.17) Ratio TSH 5.070 H (0.465-4.680) mIU/L 03/24/24 03/24/24 03/25/24 Range/Units 17:07 20:12 02:42 RBC 3.84 L (4.10-5.20) X 10*6/uL MCV 99.0 H (80.0-97.0) FL MCH 32.6 H (27.0-32.0) pg Plt Count 93 L (140-440) X 10*3/uL D-Dimer (<0.60) mg/L FEU Potassium (3.5-5.5) mmol/L Carbon Dioxide (21.6-31.8) mmol/L Anion Gap (4.00-12.00) mmol/L BUN (9.0-27.0) mg/dL Creatinine (0.6-1.5) mg/dL Glucose (70-110) mg/dL POC Glucose (mg/dL) 172 H 354 H (70-110) mg/dL Calcium (8.7-10.3) mg/dL AST (13-35) U/L ALT (8-44) U/L Total Protein (6.2-8.2) g/dL Albumin (3.8-4.9) g/dL Albumin/Globulin Ratio (1.60-3.17) Ratio TSH (0.465-4.680) mIU/L 03/25/24 03/25/24 Range/Units 02:42 07:24 RBC (4.10-5.20) X 10*6/uL MCV (80.0-97.0) FL MCH (27.0-32.0) pg Plt Count (140-440) X 10*3/uL D-Dimer (<0.60) mg/L FEU Potassium 2.9 L (3.5-5.5) mmol/L Carbon Dioxide 19.9 L (21.6-31.8) mmol/L Anion Gap 13.10 H (4.00-12.00) mmol/L BUN 8.1 L (9.0-27.0) mg/dL Creatinine 0.5 L (0.6-1.5) mg/dL Glucose 213 H (70-110) mg/dL POC Glucose (mg/dL) 224 H (70-110) mg/dL Calcium 8.3 L (8.7-10.3) mg/dL AST 57 H (13-35) U/L ALT 60 H (8-44) U/L Total Protein 5.7 L (6.2-8.2) g/dL Albumin 3.3 L (3.8-4.9) g/dL Albumin/Globulin Ratio 1.38 L (1.60-3.17) Ratio TSH (0.465-4.680) mIU/L Assessment and Plan Assessment: Acute diabetic ketoacidosis, secondary to noncompliance History of alcohol abuse History of type 1 diabetes Plan: The patient was seen and evaluated Currently stable and on room air Labs and medications reviewed Case management working on getting the patient what she needs for home This patient was seen independently by the pulmonary nurse practitioner rick avila pulmonary issues I have personally seen and examined the patient, performed the documentation and the assessment and plan as written. Number of minutes spent on the visit: 23.
[2024-03-25 13:27] VITALS: BP 136/95; PULSE 98; RESP 16; TEMP 98.8
[2024-03-25] MEDS: POTASSIUM CHLORIDE ER 20 MEQ TAB.ER PO STA (13:54)
--- NOTE | 2024-03-25 14:45 | P.DS ---
Providers Date of admission: 03/22/24 12:32 Attending physician: Jennifer Guajardo Consults: 03/22/24 12:31 Consult Physician Stat Consulting Provider: Keith Romano Reason/Comments: dka, etoh withdrawal Do you want consulting provider notified?: Already Contacted Primary care physician: Stated None Hospital Course: Discharge diagnoses; #. Diabetic ketoacidosis secondary to insulin-dependent diabetes mellitus IV insulin 0.1 units/kg/hr D5-0.45% 150 mls/hr DKA protocol in place As of this morning, patient's anion gap is closed, serum glucose level of 112 - patient titrated off insulin drip Patient given 30 units of Levemir 1 hour prior to stopping the drip, following that patient will receive 25 units at bedtime and have low-dose NovoLog available as needed. Will reevaluate and adjust as needed. Patient placed on 100 mL/h of 0.5% normal saline Labs completed today (03/24) are currently pending Gap is closed however sugars continue to be greater than 300, patient was on 25 units Levemir in the morning, however will try 25 units in the morning and 25 units before bed #. Alcohol withdrawal; resolved with no evidence of withdrawals CIWA protocol Thiamine 100 mg daily #. Persistent tachycardia Patient has maintained state of being tachycardic, most recently with a heart rate of 114 early this morning (03/24) D-dimer elevated at 0.71, TSH elevated at 5.070; EKG and chest x-ray ordered to rule out potential PE - PE ruled out with negative chest x-ray and negative EKG, D-dimer only mildly elevated at 0.71 #. Hypokalemia, likely secondary to correction of DKA Patient potassium 3.1 on 03/24 and 2.9 on 03/25 On 03/24 patient received 80 mEq potassium chloride, and he received additional 40 mEq on 03/25 #. Hyperkalemia, likely secondary to DKA - Resolved #. Lactic acidosis, likely secondary to DKA DKA protocol Hospital course; Patient is a 38-year-old female with history significant for insulin-dependent diabetes presenting to the emergency department with nausea/vomiting and abdominal pain. Unable to obtain history from patient due to altered mental status. According to the limited history provided to the emergency department she has had had 12 hours of intense nausea, vomiting, diarrhea as well as increased urination and thirst. She has not been on any of her diabetic medications except for metformin. She recently moved from [place] and all of her medications are confusing to her. She is prescribed lisinopril for her hypertension but has not been taking it over the last 2 days due to vomiting. She has a history of alcohol abuse - drinks 1/5 of vodka daily. Patient self reports that her last drink was 5 days ago per mother disagrees. She is noncompliant with her medications. EKG shows sinus tachycardia with ventricular rate of [address] abdomen pelvis: Mild circumferential wall thickening of the rectal wall with submucosal fat deposition, nonspecific genevieve mesentery which could represent stenosing peritonitis, hepatic steatosis. WBCs 12.2, hemoglobin 15.9, hematocrit 50, MCV 110.3 with macrocytosis, sodium 136, potassium 6.2, carbon dioxide <5, anion gap unable to be calculated, glucose 616. Afebrile, hypertensive 187/148 on admission, tachycardic 140s. Urinalysis positive for ketones. 03/23 - patient seen at bedside today. Labs completed today indicate WBC 6.1, Hgb 13.3, Hct 40.4, MCV 101.4, PLT 133, chloride 113, HCO3 16, glucose 112, calcium 8.9. Patient is currently receiving fluids, D50.45% NaCl with KCl 150 mL/h, patient was receiving 9 units of insulin per hour however has not received any today. As of labs this morning, anion gap has closed and the patient has been titrated off the insulin drip, and given 30 units Levemir one-time and placed on 25 units at bedtime with low-dose sliding scale available. Will reevaluate and alter as needed. Additionally, patient placed on 100 mL/h of 0.45% saline. Patient's phosphorus was 0.6 this morning, will continue to monitor phosphorus levels with checks every 4 hours. Possibly due to dilution as result of increased fluid intake. 03/24 - Patient seen at bedside today. Patient was titrated off of insulin drip yesterday after her anion gap closed, was given 30 units Levemir to bridge the cessation of the insulin drip, switched to 25 units long-acting insulin in the morning along with sliding scale available as needed with meals. Patient's diet was advanced to diabetic diet. Labs drawn today are currently pending. Most recent POC glucose as of 7:10 AM was 337. Patient's blood pressure earlier this morning 142/99 with a heart rate of 114, respiratory rate of 17 and while having an oxygen saturation of 90% while on room air. Patient has continued to be tachycardic, D-dimer and TSH both noted to be elevated. Will follow-up with chest x-ray and EKG. Additionally add an additional 25 units long-acting insulin every night. His sugars continue to be elevated about 300 03/25 - Patient seen at bedside today. She received 25 units Levemir in the morning as well as 25 units before bed, additionally has received 1000 mg m etformin twice daily with meals. On 03/24 patient received a total 28 units of NovoLog on top of the previously mentioned Levemir. Patient's blood sugar is currently 213. Per lab result yesterday D-dimer 0.71 and TSH 5.07, EKG and chest x-ray ordered to rule out possible PE. EKG completed on 03/24 showed sinus tachycardia with possible left ventricular enlargement, chest x-ray completed morning of 03/25 pending final report. Restarted patient's home meds as of yesterday, including metformin, Zoloft, and 40 mg Zestril, overnight patient's blood pressure 116/81, heart rate of 101, respiratory rate of 16 with an oxygen saturation of 100%. As of last check, which was reported on 03/23, patient's phosphorus was less than 0.5, she received 2 packets of Neutra-Phos packet, current phosphorus check pending. As of labs on 03/24 patient's potassium was 3.1, patient received 80 mEq of potassium chloride, current potassium result pending. She states that she is feeling well today, her only fair of being discharged is having her glucose drop overnight. Discussed with the patient tighter glucose control to be done with outpatient primary care physician, and that she is in condition to be discharged as long as she feels comfortable. Patient states an understanding and she is comfortable being discharged today. Patient understands the importance on following up with her new primary care physician outpatient within a week. Labs done -WBCs 4.85, Hgb 12.5, Hct 38.0, PLT 93, potassium 2.9, HCO3 19.9, calcium 8.3, AST 57, ALT 60 Imaging done - EKG completed on 03/24 showed heart rate of 117, sinus tachycardia with possible left atrial enlargement Chest x-ray completed on 03/25 showed no acute process PHYSICAL EXAMINATION: GENERAL: The patient is alert and oriented x3, not in any acute distress. Well developed, well nourished. HEENT: Pupils are round and equally reacting to light. EOMI. No scleral icterus. No conjunctival pallor. Normocephalic, atraumatic. No pharyngeal erythema. No thyromegaly. CARDIOVASCULAR: S1 and S2 present. No murmurs, rubs, or gallops. PULMONARY: Chest is clear to auscultation, no wheezing or crackles. ABDOMEN: Soft, nontender, nondistended, normoactive bowel sounds. No palpable organomegaly. MUSCULOSKELETAL: No joint swelling or deformity. EXTREMITIES: No cyanosis, clubbing, or pedal edema. NEUROLOGICAL: Gross neurological examination did not reveal any focal deficits. SKIN: No rashes. Dictation was produced using [employer] dictation software. please excuse any grammatical, word or spelling errors. Dr. Bennett MD I have performed a history and physical examination and medical decision making of this patient, discussed the same with the the resident, and agree with the assessment and plan as written. I performed brief physical exam. Patient Condition at Discharge: Stable Plan - Discharge Summary Discharge Rx Participant: No New Discharge Prescriptions: New Insulin Detemir (Levemir) [Levemir] 25 unit SQ HS #1 each Syringe and Needle,Insulin,1Ml [Insulin Syringe 29G 1/2" 1ml] 1 syr SQ DIRECTED #180 each Insulin Detemir (Levemir) [Levemir] 25 unit SQ DAILY@0700 #1 each INSULIN ASPART (NovoLOG) [NovoLOG (formulary)] 10 unit SQ ACHS #1 each Continue lisinopriL [Zestril] 40 mg PO DAILY hydrOXYzine HCL [Atarax] 10 - 20 mg PO QID PRN PRN Reason: Anxiety Sertraline [Zoloft] 100 mg PO DAILY metFORMIN HCL ER [Glucophage XR] 1,000 mg PO DAILY Lansoprazole [Prevacid 24Hr] 15 mg PO DAILY Vitamin B-100 Complex 1 tab PO DAILY Discharge Medication List lisinopriL [Zestril] 40 mg PO DAILY 03/22/24 [History] metFORMIN HCL ER [Glucophage XR] 1,000 mg PO DAILY 03/22/24 [History] Lansoprazole [Prevacid 24Hr] 15 mg PO DAILY 03/23/24 [History] Sertraline [Zoloft] 100 mg PO DAILY 03/23/24 [History] Vitamin B-100 Complex 1 tab PO DAILY 03/23/24 [History] hydrOXYzine HCL [Atarax] 10 - 20 mg PO QID PRN 03/23/24 [History] INSULIN ASPART (NovoLOG) [NovoLOG (formulary)] 10 unit SQ ACHS #1 each 03/25/24 [Rx] Insulin Detemir (Levemir) [Levemir] 25 unit SQ DAILY@0700 #1 each 03/25/24 [Rx] Insulin Detemir (Levemir) [Levemir] 25 unit SQ HS #1 each 03/25/24 [Rx] Syringe and Needle,Insulin,1Ml [Insulin Syringe 29G 1/2" 1ml] 1 syr SQ DIRECTED #180 each 03/25/24 [Rx] Follow up Appointment(s)/Referral(s): Leslie Eduardo MD [RESIDENT] - 03/30/24 11:00 am Patient Instructions/Handouts: Insulin Aspart, Recombinant (By injection), Insulin Detemir (By injection), Diabetic Ketoacidosis (DC), How to Give an Insulin Injection (DC), Alcohol Withdrawal (DC) Activity/Diet/Wound Care/Special Instructions: your script for glucometer was sent to [facility] - your insurance dictates that you have to use them for diabetic supplies - . they are a mail order supply company - when the order goes through they will mail you your supplies. Discharge/Stand Alone Forms: AA Meetings [place], Community Resources, Help In The Home, Personal Rn Medicare Discharge Disposition: HOME SELF-CARE
--- NOTE | 2024-04-12 14:28 | CDI ---
Documentation Clarification Form Date: 04/12/2024 02:17:38 PM From: Jahaira Burger Phone: Admit Date: 03/22/2024 12:32:00 PM Patient Name: Vanessa Haskins Visit Number: [id number] Discharge Date: 03/25/2024 04:40:00 PM ATTENTION: The Clinical Documentation Specialists (CDI) and [facility] Coding Staff appreciate your assistance in clarifying documentation. Please respond to the clarification below the line at the bottom and electronically sign. The CDI & [facility] Coding staff will review the response and follow-up if needed. Please note: Queries are made part of the Legal Health Record. If you have any questions, please contact the author of this message via ITS. Doctor/Provider: Jennifer Guajardo Conflicting documentation has been found in the medical record. As attending physician, please provide clarification. Type 1 diabetes diabetic ketoacidosis per Consult and Progress Notes Home Medications metformin HCL ER [Glucophage XR] 1,000 mg PO BID History/Risk Factors: 38yo F, Alcohol withdrawal, DKA, persistenttachycardia, hypokalemia, HTN w HD, anemia, hypothyroid, HLD, noncompliant with her medications Clinical Indicators: Glucose: 03/22 >600 A1C: 11.7 Treatment: IV insulin 0.1 units/kg/hr; D5-0.45% 150 mls/hr; DKAprotocol in place Discharge Rx Participant: New Insulin Detemir [Levemir] 25 unit SQ HS #1 each Syringe and Needle,Insulin,1Ml [Insulin Syringe 29G 1/2" 1ml] 1 syr SQ DIRECTED #180 each Insulin Detemir [Levemir] 25 unit SQ DAILY@0700 #1 each; INSULIN ASPART [NovoLOG (formulary)] 10 unit SQ ACHS #1 each Please clarify which diagnosis is most appropriate: [ x] Type 1 diabetes diabetic ketoacidosis [ ] Type 2 diabetes diabetic ketoacidosis [ ] Other (please specify) [ ] Unable to determine (Template Last Revised: September 2020) MTDD
== END 2024-03-25 16:40 | disposition home or self-care (01) | DRG 420 ==
LOC: EC 08:28 → 2SICU 12:32 → 3SCARD 03-23 08:52 → 5NMEDONC 03-23 13:54
PROVIDERS: ADMIT Internal Medicine; ATTEND Internal Medicine
DX: E10.10 Type 1 diabetes mellitus with ketoacidosis without coma (principal); F10.231 Alcohol dependence with withdrawal delirium; I11.9 Hypertensive heart disease without heart failure; D64.9 Anemia, unspecified; E03.9 Hypothyroidism, unspecified; E87.5 Hyperkalemia; E87.6 Hypokalemia; D75.89 Other specified diseases of blood and blood-forming organs; E78.5 Hyperlipidemia, unspecified; T46.4X6A Underdosing of angiotensin-converting-enzyme inhibitors, initial encounter; R00.0 Tachycardia, unspecified; Z91.148 Patient's other noncompliance with medication regimen for other reason; Z79.84 Long term (current) use of oral hypoglycemic drugs; Z79.899 Other long term (current) drug therapy
CPT/HCPCS: 36415; 71045; 74177; 80048; 80051; 80053; 81001; 81025; 82009; 82565; 82947; 83036; 83605; 83690; 84100; 84439; 84443; 84484; 84520; 85025; 85379; 93005; 96361; 96376; 99282; 99291

== ENCOUNTER 2024-04-23 11:03 | Observation (INO) | payer OTHER ==
[2024-04-23 12:02] LABS: Glucose,Whole Blood 265 mg/dL (70-110)
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
[2024-04-23 12:07] LABS: Basophils # (A) 0.1 k/uL (0-0.2); Basophils % (A) 1 %; Eosinophils # (A) 0.1 k/uL (0-0.7); Eosinophils % (A) 1 %; HCT 42.4 % (34.0-46.0); HGB 13.9 gm/dL (11.4-16.0); Lymphocytes # (A) 1.7 k/uL (1.0-4.8); Lymphocytes % (A) 20 %; MCH 30.6 pg (25.0-35.0); MCHC 32.8 g/dL (31.0-37.0); Mean Platelet Volume 7.5; Monocytes # (A) 0.3 k/uL (0-1.0); Monocytes % (A) 3 %; Neutrophils # (A) 6.4 k/uL (1.3-7.7); Neutrophils % (A) 74 %; RBC 4.55 m/uL (3.80-5.40); RDW 13.2 % (11.5-15.5); WBC 8.6 k/uL (3.8-10.6)
[2024-04-23 12:15] LABS: MCV 93.3 fL (80.0-100.0); Platelet Count 454 k/uL (150-450)
[2024-04-23 12:16] LABS: Partial Thromboplastin Time 23.2 sec (22.0-30.0); Prothrombin Time 10.9 sec (10.0-12.5)
[2024-04-23 12:18] LABS: ALT 34 U/L (4-34); AST 44 U/L (14-36); African American GFR (CKD) >90 (>60 ml/min/1.73 sqM); Albumin 4.2 g/dL (3.5-5.0); Alkaline Phosphatase 103 U/L (38-126); Anion Gap 12 mmol/L; Blood Urea Nitrogen 9 mg/dL (7-17); Calcium 9.5 mg/dL (8.4-10.2); Carbon Dioxide 18 mmol/L (22-30); Chloride 105 mmol/L (98-107); Glucose 284 mg/dL (74-99); Lipase 698 U/L (23-300); Non-African American GFR(CKD) >90 (>60 ml/min/1.73 sqM); Potassium 3.9 mmol/L (3.5-5.1); Sodium 135 mmol/L (137-145); Total Bilirubin 0.8 mg/dL (0.2-1.3); Total Protein 7.2 g/dL (6.3-8.2)
[2024-04-23] MEDS: SODIUM CHLORIDE 0.9% 2,000 ML IV STA (12:21)
--- NOTE | 2024-04-23 12:26 | XR ---
EXAMINATION TYPE: XR chest 2V DATE OF EXAM: 04/23/2024 12:18 PM COMPARISON: Chest radiographs from 03/25/2024 TECHNIQUE: XR chest 2V Frontal and lateral views of the chest. CLINICAL INDICATION:Female, 38 years old with history of chest pain; FINDINGS: Lungs/Pleura: There is no evidence of pleural effusion, focal consolidation, or pneumothorax. Pulmonary vascularity: Unremarkable. Heart/mediastinum: Cardiomediastinal silhouette is unremarkable. Musculoskeletal: No acute osseous pathology. IMPRESSION: No acute cardiopulmonary disease/process. [facility], , 04/23/2024 12:23 PM
[2024-04-23] MEDS: ACETAMINOPHEN TAB 500 MG TAB PO STA (12:58)
[2024-04-23 15:03] LABS: VBG PH 7.62 (7.31-7.41)
[2024-04-23 16:28] LABS: ABG Base Excess -1.5 mmol/L; ABG HCO3 19 mmol/L (21-25); ABG Oxygen Saturation 99.5 % (94-97); ABG PCO2 21 mmHg (35-45); ABG PO2 111 mmHg (83-108); ABG TCO2 19 mmol/L (19-24); Allen Test Performed? Yes
[2024-04-23 16:30] LABS: Appearance,Urine Cloudy (Clear); Bacteria,Urine Rare /hpf; Bilirubin,Urine Negative (Negative); Blood,Urine Moderate (Negative); Color,Urine Yellow; Glucose,Urine (UA) 3+ (Negative); Ketones,Urine 1+ (Negative); Leukocyte Esterase,Urine Moderate (Negative); Mucus,Urine Occasional /hpf; Nitrite,Urine Negative (Negative); Protein,Urine Trace (Negative); RBC,Urine 1 /hpf (0-5); Specific Gravity,Urine 1.034 (1.001-1.035); Squamous Epithelial Cell,Urine 10 /hpf (0-4); Urobilinogen,Urine <2.0 mg/dL (<2.0); WBC,Urine 4 /hpf (0-5)
[2024-04-23 16:33] LABS: ABG PH 7.56 (7.35-7.45)
--- NOTE | 2024-04-23 16:37 | US ---
EXAMINATION TYPE: US gallbladder DATE OF EXAM: 04/23/2024 COMPARISON: NONE CLINICAL INDICATION: Female, 38 years old with history of RUQ abd pain; chest pain TECHNIQUE: Grayscale and color Doppler imaging of the right upper quadrant was performed. FINDINGS: EXAM MEASUREMENTS: Liver Length: 19.6 cm Gallbladder Wall: 0.3 cm CBD: 0.5 cm Right Kidney: 11.3 x 5.1 x 4.9 cm Pancreas: appears heterogeneous Liver: enlarged, attenuating Gallbladder: no evidence of stones Evidence for sonographic Jones's sign: no CBD: wnl Right Kidney: no evidence of hydronephrosis IMPRESSION: 1. Unremarkable gallbladder with a negative sonographic Jones sign and no biliary ductal dilatation. 2. Mild hepatomegaly and hepatic steatosis. [facility], , 04/23/2024 4:34 PM
[2024-04-23] MEDS: LORazepam 1 MG TAB PO STA (17:32)
[2024-04-23] MEDS: FAMOTIDINE 20 MG/2 ML VIAL IV STA (17:59)
[2024-04-23] MEDS: diphenhydrAMINE 50 MG/ML 1 ML VIAL IVP STA (17:59)
[2024-04-23] MEDS: methylPREDNISolone SOD SUCCI 125 MG/2 ML VIAL IV STA (17:59)
[2024-04-23] MEDS: KETOROLAC 15 MG/ML 1 ML VIAL IVP STA (18:00)
--- NOTE | 2024-04-23 20:11 | CT ---
EXAMINATION TYPE: CT chest angio for PE CT DLP: 377.6 mGycm, Automated exposure control for dose reduction was used. DATE OF EXAM: 04/23/2024 6:42 PM COMPARISON: Same day chest x-ray CLINICAL INDICATION:Female, 38 years old with history of r/o PE, respiratory alkalosis; R sided parks al chest pain since 7am TECHNIQUE/CONTRAST: CTA scan of the thorax is performed with IV Contrast, patient injected with 100 ml mL of Isovue 370, MIP images are created and reviewed these are created on a separate workstation.. FINDINGS: There is adequate contrast bolus and timing. PULMONARY ARTERIES: There is no evidence for a filling defect within the pulmonary vasculature to sug gest acute pulmonary embolism. Pulmonary trunk is normal in size. Trunk measures 2.6 CM. AORTA: Nonaneurysmal. No evidence of dissection. HEART: Heart size upper normal. No appreciable pericardial effusion. LOWER NECK: No significant findings. Visualized thyroid is unremarkable. MEDIASTINUM: No enlarged nodes by CT size criteria. SOFT TISSUES/AXILLA: Unremarkable soft tissues. No axillary adenopathy. LUNGS/ PLEURA: The lung parenchyma appears unremarkable. AIRWAY: Central airways are patent. MUSCULOSKELETAL: No acute osseous abnormality. Mild degenerative changes. UPPER ABDOMEN: No mass of the visualized adrenals. Mild reflux to the level of the liver can be seen with vigorous contrast injection or right heart insufficiency. IMPRESSION: 1. No evidence of pulmonary embolism. 2. No other acute chest process demonstrated. [facility], , 04/23/2024 8:09 PM
[2024-04-23] MEDS ORDERED: NALOXONE 0.4 MG/ML 1 ML VIAL IV PRN (20:56)
[2024-04-23] MEDS ORDERED: ACETAMINOPHEN TAB 325 MG TAB PO PRN (20:56)
[2024-04-23] MEDS ORDERED: LORazepam 2 MG/ML INJ IV PRN (21:33)
[2024-04-23] MEDS: LORazepam 2 MG/ML INJ IV PRN (21:44)
[2024-04-23] MEDS: SODIUM CHLORIDE 0.9% 1,000 ML IV SCH (21:47)
[2024-04-23] MEDS: THIAMINE 100 MG/ML 2 ML VIAL IM STA (22:09)
[2024-04-24 00:13] LABS: Glucose,Whole Blood 392 mg/dL (70-110)
[2024-04-24 00:54] LABS: Glucose,Whole Blood 379 mg/dL (70-110)
[2024-04-24] MEDS: LORazepam 2 MG/ML INJ IV PRN (01:45)
[2024-04-24 03:08] LABS: Glucose,Whole Blood 313 mg/dL (70-110)
[2024-04-24] MEDS: amLODIPine 5 MG TAB PO STA (03:19)
[2024-04-24] MEDS: INSULIN ASPART (NovoLOG) 100 UNIT/ML VIAL SQ ONE (03:19)
[2024-04-24 06:13] LABS: Glucose,Whole Blood 269 mg/dL (70-110)
[2024-04-24] MEDS: INSULIN ASPART (NovoLOG) 100 UNIT/ML VIAL SQ SCH (06:27)
[2024-04-24] MEDS: amLODIPine 5 MG TAB PO SCH (09:47)
[2024-04-24] MEDS: SERTRALINE 100 MG TAB PO STA (09:47)
[2024-04-24] MEDS: lisinopriL 20 MG TAB PO STA (09:47)
[2024-04-24 12:05] LABS: Glucose,Whole Blood 276 mg/dL (70-110)
[2024-04-24 12:38] LABS: Basophils % (A) 0 %; Eosinophils % (A) 0 %; HCT 40.5 % (34.0-46.0); HGB 13.1 gm/dL (11.4-16.0); Lymphocytes # (A) 1.6 k/uL (1.0-4.8); Lymphocytes % (A) 16 %; MCH 30.1 pg (25.0-35.0); MCHC 32.3 g/dL (31.0-37.0); MCV 93.2 fL (80.0-100.0); Mean Platelet Volume 7.3; Monocytes # (A) 0.3 k/uL (0-1.0); Monocytes % (A) 3 %; Neutrophils # (A) 7.9 k/uL (1.3-7.7); Neutrophils % (A) 80 %; Platelet Count 367 k/uL (150-450); RBC 4.34 m/uL (3.80-5.40); RDW 13.4 % (11.5-15.5); WBC 9.9 k/uL (3.8-10.6)
[2024-04-24 13:02] LABS: ALT 26 U/L (4-34); AST 23 U/L (14-36); African American GFR (CKD) >90 (>60 ml/min/1.73 sqM); Albumin 3.9 g/dL (3.5-5.0); Alkaline Phosphatase 75 U/L (38-126); Anion Gap 10 mmol/L; Blood Urea Nitrogen 8 mg/dL (7-17); Calcium 9.3 mg/dL (8.4-10.2); Carbon Dioxide 23 mmol/L (22-30); Chloride 107 mmol/L (98-107); Glucose 252 mg/dL (74-99); Non-African American GFR(CKD) >90 (>60 ml/min/1.73 sqM); Potassium 3.8 mmol/L (3.5-5.1); Sodium 140 mmol/L (137-145); Total Bilirubin 0.8 mg/dL (0.2-1.3); Total Protein 6.8 g/dL (6.3-8.2)
[2024-04-24] MEDS: INSULIN DETEMIR (LEVEMIR) 100 UNIT/ML SYR SQ SCH (13:09)
[2024-04-24] MEDS ORDERED: hydrOXYzine HCL 25 MG TAB PO PRN (16:12)
--- NOTE | 2024-04-24 16:25 | P.HPIM ---
History of Present Illness History of present illness; 38-year-old female with a past medical history of type 2 diabetes, history of DKA,, hypertension, and mood disorder presents with worsening chest pain. Patient reports she woke up at 7 AM yesterday with a dull right-sided chest pain that radiated to the right shoulder and into the back. Patient denies worsening of the symptoms with inspiration. Patient also denies shortness of breath, fever, cough, chills, nasal congestion, abdominal pain, nausea or vomiting. Patient reports she took her home insulin dose this morning. Patient also reports she drank a pint of alcohol yesterday and is a current tobacco smoker. Patient reports she had a family member recently which is caused her to drink heavily for several months, however she reports quitting drinking 5 weeks ago besides yesterday when she drinks a pint. Of note patient reports 5 weeks ago she was hospitalized for DKA. Initial lab work from the ER was significant for platelet count 454, ABG pH 7.56, ABG pCO2 21, ABG pCO2 111, ABG bicarb 19, sodium 135, bicarb 18, glucose 284, AST 44, ALT 34, troponin less than 0.012, lipase 698, and acetone negative. EKG done in the ER showed heart rate of 93 bpm, no ST segment elevation or depression seen, no T-wave inversions seen. NSR, possible left atrial enlargement. Prolonged QT interval. QT 422. ER CXR: No acute cardiopulmonary disease/process. ER chest CTA: No evidence of PE, no other acute chest process demonstrated. ER gallbladder ultrasound: Unremarkable gallbladder with a negative sonographic Jones sign and no biliary ductal dilation. Mild hepatomegaly and hepatic steatosis. Patient admitted to internal medicine service REVIEW OF SYSTEMS: CONSTITUTIONAL: No fever, no malaise, no fatigue. HEENT: No recent visual problems or hearing problems. Denied any sore throat. CARDIOVASCULAR: Admits to chest heaviness/pain, but denies orthopnea, PND, no p alpitations, no syncope. PULMONARY: No shortness of breath, no cough, no hemoptysis. GASTROINTESTINAL: No diarrhea, no nausea, no vomiting, no abdominal pain. NEUROLOGICAL: No headaches, no weakness, no numbness. HEMATOLOGICAL: Denies any bleeding or petechiae. GENITOURINARY: Denies any burning micturition, frequency, or urgency. MUSCULOSKELETAL/RHEUMATOLOGICAL: Denies any joint pain, swelling, or any muscle pain. ENDOCRINE: Denies any polyuria or polydipsia. The rest of the 14-point review of systems is negative. PHYSICAL EXAMINATION: GENERAL: The patient is alert and oriented x3, not in any acute distress. Well developed, well nourished. Obese. HEENT: Pupils are round and equally reacting to light. EOMI. No scleral icterus. No conjunctival pallor. Normocephalic, atraumatic. No pharyngeal erythema. No thyromegaly. CARDIOVASCULAR: S1 and S2 present. No murmurs, rubs, or gallops. PULMONARY: Chest is clear to auscultation b/l, no wheezing or crackles. ABDOMEN: Soft, nontender, nondistended, normoactive bowel sounds. No palpable organomegaly. MUSCULOSKELETAL: No joint swelling or deformity. EXTREMITIES: No cyanosis, clubbing, or pedal edema. NEUROLOGICAL: Gross neurological examination did not reveal any focal deficits. SKIN: No rashes. Assessment & Plan: # Acute pancreatitis: In the setting of recent heavy alcohol consumption, lipase 698 Gallbladder ultrasound unremarkable with negative sonographic Jones sign and no biliary ductal dilation Continue IV fluids, and continue diet as tolerated Continue to monitor #Respiratory alkalosis: ABG showed pH 7.56, pCO2 21, p.o. 211, and bicarb 19 Potentially secondary to acute pancreatitis Continue to monitor #Alcohol use disorder: Continue CIWA protocol Patient reports her last drink was yesterday and it was the first 1 in 5 weeks, and has a lipase of 698. Continue to monitor for signs of withdrawal #Chest pain of unknown etiology: Cardiac workup including EKG and troponins was negative Potentially referred pain from acute pancreatitis Continue to monitor Chronic: #Mood disorder: Continue home Zoloft 100 mg p.o. daily #Hypertension: Continue home lisinopril 40 mg p.o. daily #Type 2 diabetes: Started sliding scale Accu-Cheks F: 75 cc/h E: None N: Regular diet A: Normally ambulates at home unassisted Dispo: Pending clinical course Leonard Rojas MD PGY-1 FM Attestation I have seen and examined this patient with my resident , discussed the same with the resident/MATTHEW, and agree with the dictator's assessment and plan as written Dr. Aris white Dictation was produced using [employer] software. please excuse any grammatical, word or spelling errors. Past Medical History Past Medical History: Diabetes Mellitus, Hypertension Additional Past Medical History / Comment(s): Lupus, etoh History of Any Multi-Drug Resistant Organisms: None Reported Past Surgical History: No Surgical Hx Reported Past Anesthesia/Blood Transfusion Reactions: No Reported Reaction Smoking Status: Never smoker - Past Family History Mother Family Medical History: Diabetes Mellitus Father Family Medical History: Diabetes Mellitus Medications and Allergies Home Medications Medication Instructions Recorded Confirmed Type lisinopriL [Zestril] 40 mg PO DAILY 03/22/24 04/23/24 History metFORMIN HCL ER [Glucophage XR] 1,000 mg PO DAILY 03/22/24 04/23/24 History Sertraline [Zoloft] 100 mg PO DAILY 03/23/24 04/23/24 History INSULIN ASPART (NovoLOG) [NovoLOG 10 unit SQ AC-TID 04/23/24 04/23/24 History (formulary)] Insulin Detemir (Levemir) [Levemir] 25 unit SQ BID 04/23/24 04/23/24 History hydrOXYzine HCL [Atarax] 50 mg PO Q6H PRN 04/23/24 04/23/24 History Allergies Allergy/AdvReac Type Severity Reaction Status Date / Time Iodinated Contrast Media Allergy Anaphylaxis Verified 04/23/24 15:16 Physical Exam Vitals: Vital Signs Temp Pulse Pulse Resp BP BP Pulse Ox 04/24/24 04:27 98.0 F 98 16 142/92 100 04/24/24 02:17 172/121 04/24/24 01:06 97.9 F 90 20 167/119 97 04/24/24 00:41 62 18 185/128 97 04/23/24 23:58 66 18 96 04/23/24 23:36 168/107 04/23/24 21:26 60 18 181/103 95 04/23/24 19:09 79 18 179/104 97 04/23/24 14:53 85 18 159/102 98 04/23/24 12:11 96 18 155/98 100 04/23/24 11:05 98.4 F 99 20 162/109 99 Intake and Output 04/23/24 04/24/24 04/24/24 22:59 06:59 14:59 Intake Total 777 Balance 777 Intake: Oral 777 Other: Voiding Method Toilet Weight 82.9 kg Results CBC & Chem 7: 04/24/24 12:07 04/25/24 06:04 Labs: Abnormal Lab Results - Last 24 Hours (Table) 04/23/24 04/23/24 04/23/24 Range/Units 11:58 12:00 12:00 Plt Count 454 H D (150-450) k/uL ABG pH (7.35-7.45) ABG pCO2 (35-45) mmHg ABG pO2 (83-108) mmHg ABG HCO3 (21-25) mmol/L ABG O2 Saturation (94-97) % VBG pH (7.31-7.41) VBG pCO2 (37-51) mmHg VBG HCO3 (24-28) mmol/L Sodium 135 L (137-145) mmol/L Carbon Dioxide 18 L (22-30) mmol/L Creatinine 0.37 L (0.52-1.04) mg/dL Glucose 284 H (74-99) mg/dL POC Glucose (mg/dL) 265 H (70-110) mg/dL Plasma Lactic Acid Faisal (0.7-2.0) mmol/L AST 44 H (14-36) U/L Lipase 698 H (23-300) U/L Urine Appearance (Clear) Urine Protein (Negative) Urine Glucose (UA) (Negative) Urine Ketones (Negative) Urine Blood (Negative) Ur Leukocyte Esterase (Negative) Ur Squamous Epith Cells (0-4) /hpf Urine Bacteria (None) /hpf Urine Mucus (None) /hpf 04/23/24 04/23/24 04/23/24 Range/Units 12:11 14:40 15:59 Plt Count (150-450) k/uL ABG pH (7.35-7.45) ABG pCO2 (35-45) mmHg ABG pO2 (83-108) mmHg ABG HCO3 (21-25) mmol/L ABG O2 Saturation (94-97) % VBG pH 7.62 H* (7.31-7.41) VBG pCO2 16 L* (37-51) mmHg VBG HCO3 17 L (24-28) mmol/L Sodium (137-145) mmol/L Carbon Dioxide (22-30) mmol/L Creatinine (0.52-1.04) mg/dL Glucose (74-99) mg/dL POC Glucose (mg/dL) (70-110) mg/dL Plasma Lactic Acid Faisal 3.2 H* (0.7-2.0) mmol/L AST (14-36) U/L Lipase (23-300) U/L Urine Appearance Cloudy H (Clear) Urine Protein Trace H (Negative) Urine Glucose (UA) 3+ H (Negative) Urine Ketones 1+ H (Negative) Urine Blood Moderate H (Negative) Ur Leukocyte Esterase Moderate H (Negative) Ur Squamous Epith Cells 10 H (0-4) /hpf Urine Bacteria Rare H (None) /hpf Urine Mucus Occasional H (None) /hpf 04/23/24 04/24/24 04/24/24 Range/Units 16:27 00:11 00:52 Plt Count (150-450) k/uL ABG pH 7.56 H* (7.35-7.45) ABG pCO2 21 L (35-45) mmHg ABG pO2 111 H (83-108) mmHg ABG HCO3 19 L (21-25) mmol/L ABG O2 Saturation 99.5 H (94-97) % VBG pH (7.31-7.41) VBG pCO2 (37-51) mmHg VBG HCO3 (24-28) mmol/L Sodium (137-145) mmol/L Carbon Dioxide (22-30) mmol/L Creatinine (0.52-1.04) mg/dL Glucose (74-99) mg/dL POC Glucose (mg/dL) 392 H 379 H (70-110) mg/dL Plasma Lactic Acid Faisal (0.7-2.0) mmol/L AST (14-36) U/L Lipase (23-300) U/L Urine Appearance (Clear) Urine Protein (Negative) Urine Glucose (UA) (Negative) Urine Ketones (Negative) Urine Blood (Negative) Ur Leukocyte Esterase (Negative) Ur Squamous Epith Cells (0-4) /hpf Urine Bacteria (None) /hpf Urine Mucus (None) /hpf 04/24/24 04/24/24 Range/Units 03:06 06:12 Plt Count (150-450) k/uL ABG pH (7.35-7.45) ABG pCO2 (35-45) mmHg ABG pO2 (83-108) mmHg ABG HCO3 (21-25) mmol/L ABG O2 Saturation (94-97) % VBG pH (7.31-7.41) VBG pCO2 (37-51) mmHg VBG HCO3 (24-28) mmol/L Sodium (137-145) mmol/L Carbon Dioxide (22-30) mmol/L Creatinine (0.52-1.04) mg/dL Glucose (74-99) mg/dL POC Glucose (mg/dL) 313 H 269 H (70-110) mg/dL Plasma Lactic Acid Faisal (0.7-2.0) mmol/L AST (14-36) U/L Lipase (23-300) U/L Urine Appearance (Clear) Urine Protein (Negative) Urine Glucose (UA) (Negative) Urine Ketones (Negative) Urine Blood (Negative) Ur Leukocyte Esterase (Negative) Ur Squamous Epith Cells (0-4) /hpf Urine Bacteria (None) /hpf Urine Mucus (None) /hpf Thrombosis Risk Factor Assmnt - Choose All That Apply Any of the Below Risk Factors Present?: Yes Each Factor Represents 1 point: Obesity (BMI >25) Other Risk Factors: No Other congenital or acquired thrombophilia - If yes, enter type in comment: No Thrombosis Risk Factor Assessment Total Risk Factor Score: 1 Thrombosis Risk Factor Assessment Level: Low Risk
[2024-04-24 16:39] LABS: Glucose,Whole Blood 149 mg/dL (70-110)
[2024-04-24] MEDS: MORPHINE SULFATE 4 MG/ML SYRINGE IV PRN (17:00)
[2024-04-24] MEDS: hydrALAZINE HCL 20 MG/ML 1 ML VIAL IVP PRN (17:00)
[2024-04-24] MEDS: METOPROLOL TARTRATE 25 MG TAB PO SCH (18:46)
[2024-04-24 19:58] LABS: Glucose,Whole Blood 182 mg/dL (70-110)
[2024-04-25 06:12] LABS: Glucose,Whole Blood 102 mg/dL (70-110)
[2024-04-25 06:42] LABS: ALT 53 U/L (4-34); AST 135 U/L (14-36); African American GFR (CKD) >90 (>60 ml/min/1.73 sqM); Alkaline Phosphatase 69 U/L (38-126); Anion Gap 9 mmol/L; Blood Urea Nitrogen 8 mg/dL (7-17); Calcium 9.2 mg/dL (8.4-10.2); Carbon Dioxide 26 mmol/L (22-30); Chloride 108 mmol/L (98-107); Glucose 106 mg/dL (74-99); Lipase 486 U/L (23-300); Non-African American GFR(CKD) >90 (>60 ml/min/1.73 sqM); Potassium 3.3 mmol/L (3.5-5.1); Sodium 143 mmol/L (137-145); Total Bilirubin 0.6 mg/dL (0.2-1.3); Total Protein 6.8 g/dL (6.3-8.2)
[2024-04-25 07:57] LABS: HCG,Qualitative Serum Not Detected
[2024-04-25] MEDS: SERTRALINE 100 MG TAB PO SCH (08:25)
[2024-04-25] MEDS: lisinopriL 20 MG TAB PO SCH (08:26)
[2024-04-25] MEDS: POTASSIUM CHLORIDE ER 20 MEQ TAB.ER PO STA (08:28)
[2024-04-25 08:42] VITALS: RESP 16
[2024-04-25] MEDS: LORazepam 0.5 MG TAB PO PRN (10:47)
[2024-04-25 11:46] LABS: Glucose,Whole Blood 173 mg/dL (70-110)
[2024-04-25] MEDS: amLODIPine 5 MG TAB PO STA (12:06)
--- NOTE | 2024-04-25 12:42 | P.PN ---
Subjective Progress Note Date: 04/25/24 38-year-old female with a past medical history of type 2 diabetes, history of DKA,, hypertension, and mood disorder presents with worsening chest pain. Patient reports she woke up at 7 AM yesterday with a dull right-sided chest pain that radiated to the right shoulder and into the back. Patient denies worsening of the symptoms with inspiration. Patient also denies shortness of breath, fever, cough, chills, nasal congestion, abdominal pain, nausea or vomiting. Patient reports she took her home insulin dose this morning. Patient also reports she drank a pint of alcohol yesterday and is a current tobacco smoker. Patient reports she had a family member recently which is caused her to drink heavily for several months, however she reports quitting drinking 5 weeks ago besides yesterday when she drinks a pint. Of note patient reports 5 weeks ago she was hospitalized for DKA. Initial lab work from the ER was significant for platelet count 454, ABG pH 7.56, ABG pCO2 21, ABG pCO2 111, ABG bicarb 19, sodium 135, bicarb 18, glucose 284, AST 44, ALT 34, troponin less than 0.012, lipase 698, and acetone negative. EKG done in the ER showed heart rate of 93 bpm, no ST segment elevation or depression seen, no T-wave inversions seen. NSR, possible left atrial enlargement. Prolonged QT interval. QT 422. ER CXR: No acute cardiopulmonary disease/process. ER chest CTA: No evidence of PE, no other acute chest process demonstrated. ER gallbladder ultrasound: Unremarkable gallbladder with a negative sonographic Jones sign and no biliary ductal dilation. Mild hepatomegaly and hepatic steatosis. Patient admitted to internal medicine service 04/25. Patient seen. Patient blood pressure has been elevated, started on Norvasc. Denies any abdominal pain. Denies any nausea or vomiting. Tolerating diet. Blood work done showed sodium 143, potassium 3.3, BUN 8, current 0.56, glucose 102. REVIEW OF SYSTEMS: CONSTITUTIONAL: No fever, no malaise,. CARDIOVASCULAR: No chest pain, no palpitations, no syncope. PULMONARY: No shortness of breath, no cough, GASTROINTESTINAL: No diarrhea, no nausea, no vomiting, no abdominal pain. NEUROLOGICAL: No headaches, no weakness, PHYSICAL EXAMINATION: GENERAL: The patient is alert and oriented x3, not in any acute distress. Well developed, well nourished. HEENT: Pupils are round and equally reacting to light. EOMI. No scleral icterus. No conjunctival pallor. Normocephalic, atraumatic. No pharyngeal erythema. No thyromegaly. CARDIOVASCULAR: S1 and S2 present. No murmurs, rubs, or gallops. PULMONARY: Chest is clear to auscultation, no wheezing or crackles. ABDOMEN: Soft, nontender, nondistended, normoactive bowel sounds. No palpable organomegaly. MUSCULOSKELETAL: No joint swelling or deformity. EXTREMITIES: No cyanosis, clubbing, or pedal edema. NEUROLOGICAL: Gross neurological examination did not reveal any focal deficits. SKIN: No rashes. Assessment and plan # Acute pancreatitis: Monitor vital sign Monitor CBC Monitor CMP Abdominal pain resolved DC fluids #Respiratory alkalosis: Resolved #Alcohol use disorder: Continue CIWA protocol #Chest pain of unknown etiology: Cardiac workup including EKG and troponins was negative Potentially referred pain from acute pancreatitis Chest pain resolved Chronic: #Mood disorder: Continue home Zoloft 100 mg p.o. daily # Uncontrolled hypertension: Continue home lisinopril 40 mg p.o. daily Increase dose of Norvasc 10 mg daily #Type 2 diabetes: Continue current insulin regimen Labs and medication were reviewed.. Continue same treatment. Continue with symptomatic treatment. Resume home medication. Monitor labs and vitals. DVT and GI prophylaxis. Further recommendations as per clinical course of the patient Dictation was produced using [employer] dictation software. please excuse any grammatical, word or spelling errors. Objective - Vital Signs Vital signs: Vital Signs Temp 98.2 F 04/25/24 08:35 Pulse 93 04/25/24 08:35 Resp 16 04/25/24 08:35 BP 178/115 04/25/24 08:35 Pulse Ox 97 04/25/24 08:35 FiO2 Intake & Output 04/24/24 04/25/24 04/25/24 18:59 06:59 18:59 Intake Total 700 240 Balance 700 240 Intake: Intake, IV Titration 0 Amount Sodium Chloride 0.9% 1, 0 000 ml @ 75 mls/hr IV . [id number] JORGE L Rx#:[id number] Oral 700 240 Other: Voiding Method Toilet Toilet Toilet # Voids 2 - Labs CBC & Chem 7: 04/24/24 12:07 04/25/24 06:04 Labs: Abnormal Lab Results - Last 24 Hours (Table) 04/24/24 04/24/24 04/24/24 Range/Units 12:07 16:37 19:57 Potassium (3.5-5.1) mmol/L Chloride (98-107) mmol/L Creatinine 0.47 L (0.52-1.04) mg/dL Glucose 252 H (74-99) mg/dL POC Glucose (mg/dL) 149 H 182 H (70-110) mg/dL AST (14-36) U/L ALT (4-34) U/L Lipase (23-300) U/L 04/25/24 04/25/24 Range/Units 06:04 11:41 Potassium 3.3 L (3.5-5.1) mmol/L Chloride 108 H (98-107) mmol/L Creatinine (0.52-1.04) mg/dL Glucose 106 H (74-99) mg/dL POC Glucose (mg/dL) 173 H (70-110) mg/dL AST 135 H (14-36) U/L ALT 53 H (4-34) U/L Lipase 486 H (23-300) U/L
[2024-04-25 16:40] LABS: Glucose,Whole Blood 171 mg/dL (70-110)
[2024-04-25 19:57] LABS: Glucose,Whole Blood 291 mg/dL (70-110)
[2024-04-25] MEDS: KETOROLAC 15 MG/ML 1 ML VIAL IVP PRN (23:32)
[2024-04-26 06:01] LABS: Glucose,Whole Blood 195 mg/dL (70-110)
[2024-04-26 06:32] LABS: Basophils % (A) 1 %; Eosinophils # (A) 0.1 k/uL (0-0.7); Eosinophils % (A) 2 %; HCT 42.5 % (34.0-46.0); HGB 13.6 gm/dL (11.4-16.0); Lymphocytes # (A) 1.7 k/uL (1.0-4.8); Lymphocytes % (A) 29 %; MCH 30.5 pg (25.0-35.0); MCV 95.4 fL (80.0-100.0); Mean Platelet Volume 7.3; Monocytes # (A) 0.2 k/uL (0-1.0); Monocytes % (A) 3 %; Neutrophils # (A) 3.8 k/uL (1.3-7.7); Neutrophils % (A) 63 %; Platelet Count 285 k/uL (150-450); RBC 4.46 m/uL (3.80-5.40); RDW 13.7 % (11.5-15.5); WBC 5.9 k/uL (3.8-10.6)
[2024-04-26 06:38] LABS: ALT 50 U/L (4-34); AST 79 U/L (14-36); African American GFR (CKD) >90 (>60 ml/min/1.73 sqM); Alkaline Phosphatase 72 U/L (38-126); Anion Gap 8 mmol/L; Blood Urea Nitrogen 10 mg/dL (7-17); Calcium 9.4 mg/dL (8.4-10.2); Carbon Dioxide 26 mmol/L (22-30); Chloride 106 mmol/L (98-107); Glucose 191 mg/dL (74-99); Non-African American GFR(CKD) >90 (>60 ml/min/1.73 sqM); Potassium 3.6 mmol/L (3.5-5.1); Sodium 140 mmol/L (137-145); Total Bilirubin 0.9 mg/dL (0.2-1.3); Total Protein 6.9 g/dL (6.3-8.2)
[2024-04-26] MEDS: amLODIPine 10 MG TAB PO SCH (09:12)
[2024-04-26 09:20] VITALS: TEMP 97.9
[2024-04-26 11:33] LABS: Glucose,Whole Blood 326 mg/dL (70-110)
[2024-04-26 12:10] VITALS: BP 154/94; PULSE 94
[2024-04-26 13:00] LABS: Glucose,Whole Blood 396 mg/dL (70-110)
[2024-04-26] MEDS: INSULIN ASPART (NovoLOG) 100 UNIT/ML VIAL SQ ONE (13:00)
--- NOTE | 2024-04-26 13:50 | P.DS ---
Providers Date of admission: 04/23/24 20:19 Attending physician: Fahad Hyatt Primary care physician: Physician Nonstaff Hospital Course: Discharge Diagnosis: Acute pancreatitis Respiratory alkalosis Alcohol use disorder Chest pain of unknown etiology Mood disorder Uncontrolled hypertension Type 2 diabetes Hospital Course: 38-year-old female with a past medical history of type 2 diabetes, history of DKA,, hypertension, and mood disorder presents with worsening chest pain. Patient reports she woke up at 7 AM yesterday with a dull right-sided chest pain that radiated to the right shoulder and into the back. Patient denies worsening of the symptoms with inspiration. Patient also denies shortness of breath, fever, cough, chills, nasal congestion, abdominal pain, nausea or vomiting. Patient reports she took her home insulin dose this morning. Patient also reports she drank a pint of alcohol yesterday and is a current tobacco smoker. Patient reports she had a family member recently which is caused her to drink heavily for several months, however she reports quitting drinking 5 weeks ago besides yesterday when she drinks a pint. Of note patient reports 5 weeks ago she was hospitalized for DKA. Initial lab work from the ER was significant for platelet count 454, ABG pH 7.56, ABG pCO2 21, ABG pCO2 111, ABG bicarb 19, sodium 135, bicarb 18, glucose 284, AST 44, ALT 34, troponin less than 0.012, lipase 698, and acetone negative. EKG done in the ER showed heart rate of 93 bpm, no ST segment elevation or depression seen, no T-wave inversions seen. NSR, possible left atrial enlargement. Prolonged QT interval. QT 422. ER CXR: No acute cardiopulmonary disease/process. ER chest CTA: No evidence of PE, no other acute chest process demonstrated. ER gallbladder ultrasound: Unremarkable gallbladder with a negative sonographic Jones sign and no biliary ductal dilation. Mild hepatomegaly and hepatic steatosis. Patient admitted to internal medicine service 04/25. Patient seen. Patient blood pressure has been elevated, started on Norvasc. Denies any abdominal pain. Denies any nausea or vomiting. Tolerating diet. Blood work done showed sodium 143, potassium 3.3, BUN 8, current 0.56, glucose 102. While admitted patient was found to have acute pancreatitis with initial lipase level of 698 which down trended to 486. This is in the setting of patient recently having excess alcohol in excess of 0.5 L of liquor. This episode of heavy drinking preceded her admission by 1 day. On day of discharge patient reports her symptoms have improved, still feels some epigastric/chest discomfort and has some nausea. Patient is being sent home on her home medication with the addition of Lopressor 25 mg p.o. twice daily, amlodipine 10 mg p.o. daily, Librium 25 mg p.o. twice daily as needed for 3 days with a total of 6 capsules. Patient is medically cleared and hemodynamically stable for discharge to home. Patient advised to follow-up with her PCP. Pt seen and examined at bedside: Patient reports she feels somewhat the same, perhaps a slight improvement in her epigastric/chest pain. Vital signs reveiwed and stable: General: non toxic, no distress, appears at stated age, normal weight Derm: no unusual rashes/lesions, warm Head: atraumatic, normocephalic, symmetric Eyes: EOMI, no lid lag, anicteric sclera, pupils equal round reactive to light ENT: Nose and ears atraumatic Neck: No cervical lymphadenopathy, trachea midline, supple Mouth: no lip lesion, mucus membranes moist Cardiovascular: S1S2 reg, no murmur, positive dorsalis pedis pulse bilateral, no edema Lungs: Decreased air entry bilaterally, no rhonchi, no rales, no accessory muscle use Abdominal: soft, nontender to palpation, no guarding Ext: muscle strength 5 out of 5 in all 4 extremities grossly, no gross muscle atrophy, no contractures, Neuro: CN II-XI grossly intact, no gross focal neuro deficits Psych: Alert, oriented, appropriate affect A total of greater than 30 minutes were spent preparing this complex discarge summary. Patient was discharged on 04/26/2024, 12:40 PM. Plan - Discharge Summary Discharge Rx Participant: Yes New Discharge Prescriptions: New Metoprolol Tartrate [Lopressor] 25 mg PO BID #60 tab amLODIPine [Norvasc] 10 mg PO DAILY #30 tab chlordiazePOXIDE HCl [Librium] 25 mg PO BID PRN 3 Days #6 capsule PRN Reason: Alcohol Withdrawal Continue lisinopriL [Zestril] 40 mg PO DAILY Sertraline [Zoloft] 100 mg PO DAILY hydrOXYzine HCL [Atarax] 50 mg PO Q6H PRN PRN Reason: Anxiety metFORMIN HCL ER [Glucophage XR] 1,000 mg PO DAILY Insulin Detemir (Levemir) [Levemir] 25 unit SQ BID INSULIN ASPART (NovoLOG) [NovoLOG (formulary)] 10 unit SQ AC-TID Discharge Medication List lisinopriL [Zestril] 40 mg PO DAILY 03/22/24 [History] metFORMIN HCL ER [Glucophage XR] 1,000 mg PO DAILY 03/22/24 [History] Sertraline [Zoloft] 100 mg PO DAILY 03/23/24 [History] INSULIN ASPART (NovoLOG) [NovoLOG (formulary)] 10 unit SQ AC-TID 04/23/24 [History] Insulin Detemir (Levemir) [Levemir] 25 unit SQ BID 04/23/24 [History] hydrOXYzine HCL [Atarax] 50 mg PO Q6H PRN 04/23/24 [History] Metoprolol Tartrate [Lopressor] 25 mg PO BID #60 tab 04/26/24 [Rx] amLODIPine [Norvasc] 10 mg PO DAILY #30 tab 04/26/24 [Rx] chlordiazePOXIDE HCl [Librium] 25 mg PO BID PRN 3 Days #6 capsule 04/26/24 [Rx] Follow up Appointment(s)/Referral(s): Nonstaff,Physician [Primary Care Provider] - 1-2 days (Please find a PCP/schedule a follow up appointment [facility].) Patient Instructions/Handouts: Pancreatitis (DC), Alcohol Withdrawal (DC) Activity/Diet/Wound Care/Special Instructions: Diet: Consistent carb. Discharge/Stand Alone Forms: AA Meetings [address] - [facility], AA Meetings [facility], Outpatient Counseling, Inp Substance Abuse Facilities Discharge Disposition: HOME SELF-CARE
== END 2024-04-26 15:07 | disposition home or self-care (01) ==
LOC: EC 11:03 → 6NMEDSUR 20:19 → 3SCARD 04-24 00:17
PROVIDERS: ADMIT Hospitalist; ATTEND Hospitalist
DX: K85.90 Acute pancreatitis without necrosis or infection, unspecified (principal); E87.3 Alkalosis; R07.89 Other chest pain; F39 Unspecified mood [affective] disorder; I10 Essential (primary) hypertension; E11.9 Type 2 diabetes mellitus without complications; F17.200 Nicotine dependence, unspecified, uncomplicated; K76.0 Fatty (change of) liver, not elsewhere classified; R16.0 Hepatomegaly, not elsewhere classified; Z79.4 Long term (current) use of insulin; Z79.899 Other long term (current) drug therapy; Z79.84 Long term (current) use of oral hypoglycemic drugs; Z91.041 Radiographic dye allergy status; Z83.3 Family history of diabetes mellitus
CPT/HCPCS: 96376 ×3; 96361 ×3; 96375 ×2; 96372; 96374; 99285; 36415; 93005; 80053 ×4; 84443; 82805; 82803; 82009; 83605; 83690 ×2; 84484 ×2; 85025 ×3; 85610; 85730; 81001; 81025; 84703; 71046; 76705; 71275; G0378 ×4; J2060 ×4; J2270 ×3; J0360 ×2; J1200; J3411; J3490; J1885 ×3; Q9967; J2919